=== PATIENT | female | born 1930 | race Caucasian/White ===

== ENCOUNTER 2020-06-26 14:44 | Inpatient (IN) | payer MEDICARE, OTHER ==
[~2020-06-26] VITALS: Ht 162.6 cm; Wt 64.2 kg
[2020-06-26 15:00] VITALS: BP 143/75
--- NOTE | 2020-06-26 15:43 | HP ---
ADMIT DATE: 06/26/2020 ATTENDING PHYSICIAN: Dr. Pickens. HISTORY OF PRESENT ILLNESS: The patient is doing well. This is a pleasant 89-year-old female, resident of [facility] in [place], [place]. She has underlying dementia and lately, she has been very anxious, depressed, poor appetite, hearing voices from outside saying that she sees people that are not there. She is having some visual hallucinations. She was sent here ___ adjustment on her medication. She had been on Paxil, discontinued, started on Cymbalta on 06/06. Hydrocodone has been discontinued. 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 ALLERGIES: She has allergies to anti-inflammatory drugs, exact reaction is unclear. She is a DNR per advanced directive. CURRENT MEDICATIONS: Her lists of medications include amlodipine 5 mg daily, Lipitor, Plavix 75 mg daily, furosemide 20 mg daily, hydrocodone p.r.n., melatonin, lisinopril 40 mg daily, metoprolol, Protonix, Paxil, potassium, Requip, therapeutic vitamin, estradiol, vitamin D, and ondansetron p.r.n. SOCIAL HISTORY: She is a nonsmoker, nondrinker. FAMILY HISTORY: Unobtainable due to the patient's condition. REVIEW OF SYSTEMS: Unobtainable due to the patient's confusion. PHYSICAL EXAMINATION: GENERAL: When I saw her, this is a very pleasant elderly female in no acute distress. She is afebrile. VITAL SIGNS: Initial vital signs on the database. HEENT: Head is without trauma. Pupils are reactive. Sclerae nonicteric. The oropharynx is clear. NECK: Supple, no bruits identified. LUNGS: Otherwise, clear to auscultation. CARDIOVASCULAR: Showed regular heart tones. No gallops. Peripheral pulses are palpable and full. ABDOMEN: Soft, scaphoid, nontender, no organomegaly. Bowel sounds are hypoactive. EXTREMITIES: Showed no cyanosis. Her extremities showed 2+ edema of the lower extremities. NEUROLOGIC: Focally intact. Speech is fluent. No deficit. She is not aware of time and place. SKIN: Otherwise, warm and dry. LABORATORY DATA: CBC, chemistry panel, coronavirus swab, serology have been ordered and pending at this time. ASSESSMENT: 1. An 89-year-old female, longterm resident with underlying dementia and visual hallucinations. She is medically stable. 2. Essential hypertension. 3. Chronic pedal edema. 4. Chronic back pain. 5. Restless leg syndrome. 6. Old stroke with residual deficits. 7. Gastroesophageal reflux disease. 8. Chronic urinary tract infections. PLAN: 1. I will review lab work when available. 2. Continue home meds. 3. Await results of coronavirus swabs. When bed is available, we will set her up to the [facility]. CHEL PICKENS MD DR: ALEXA/red JOB#: [id number] / [id number]
[2020-06-26 16:55] LABS: BASO # 0.1 x10^3/uL (0.0-0.2); BASO % 1 % (0-3); EOS # 0.2 x10^3/uL (0.0-0.7); EOS % 3 % (0-3); HEMATOCRIT 39.3 % (36.0-47.0); HEMOGLOBIN 12.9 g/dL (12.0-15.5); LYMPH # 1.8 x10^3/uL (1.0-4.8); LYMPH % 31 % (24-48); MEAN CORPUSCULAR HEMOGLOBIN 30 pg (25-35); MEAN CORPUSCULAR HGB CONC 33 g/dL (31-37); MEAN CORPUSCULAR VOLUME 91 fL (79-100); MONO # 0.8 x10^3/uL (0.0-1.1); MONO % 13 % (0-9); NEUT # 2.9 x10^3uL (1.8-7.7); NEUT % 52 % (31-73); PLATELET COUNT 194 x10^3/uL (140-400); RED CELL DISTRIBUTION WIDTH 14.4 % (11.5-14.5); WHITE BLOOD COUNT 5.7 x10^3/uL (4.0-11.0)
[2020-06-26 17:10] LABS: ALBUMIN 3.5 g/dL (3.4-5.0); ALBUMIN/GLOBULIN RATIO 1.1 (1.0-1.7); CALCIUM 8.8 mg/dL (8.5-10.1); CREATININE 0.7 mg/dL (0.6-1.0); POTASSIUM 3.2 mmol/L (3.5-5.1); TOTAL BILIRUBIN 0.4 mg/dL (0.2-1.0); TOTAL PROTEIN 6.8 g/dL (6.4-8.2)
[2020-06-26] MEDS ORDERED: PANT40TA6 PO (17:19)
[2020-06-26] MEDS ORDERED: CRAN1CAP12 PO (17:19)
[2020-06-26] MEDS ORDERED: METO50TA29 PO (17:19)
[2020-06-26] MEDS ORDERED: ACET325T21 PO (17:19)
[2020-06-26] MEDS ORDERED: CLOP75TA PO (17:19)
[2020-06-26] MEDS ORDERED: ONDA4TAB12 PO (17:19)
[2020-06-26] MEDS ORDERED: ATOR40TA59 PO (17:19)
[2020-06-26] MEDS ORDERED: ESTR30CR VG (17:19)
[2020-06-26] MEDS ORDERED: VITA400C37 PO (17:19)
[2020-06-26] MEDS ORDERED: POTA10TA5 PO (17:19)
[2020-06-26] MEDS ORDERED: CRAN200C3 PO (17:19)
[2020-06-26] MEDS ORDERED: AMLO-187 PO (17:19)
[2020-06-26] MEDS ORDERED: LISI40TA PO (17:19)
[2020-06-26] MEDS ORDERED: FURO20TA3 PO (17:19)
[2020-06-26] MEDS ORDERED: MULT-245 PO (17:19)
[2020-06-26] MEDS ORDERED: ROPI0.5T4 PO (17:19)
[2020-06-26] MEDS ORDERED: CALC200T96 PO (17:19)
[2020-06-26] MEDS ORDERED: MELA5TAB20 PO (17:19)
[2020-06-26] MEDS ORDERED: VIT1TABL34 PO (17:19)
[2020-06-26] MEDS ORDERED: DIPH25TA64 PO (17:19)
[2020-06-26] MEDS ORDERED: PARO40TA3 PO (17:19)
[2020-06-26] MEDS ORDERED: HYDR-2769 PO (17:19)
--- NOTE | 2020-06-26 18:18 | NUR ---
NURSING NOTE: ADMISSION PT ADMITTED TO UNIT ROOM 121 VIA AMBULATION W/WALKER. PT ORIENTED TO ROOM, VITALS TAKEN. PT MADE SEVERAL ATTEMPTS TO EXIT THE BED WITHOUT ASSISTANCE. PT WAS UP OUT OF BED WITHOUT ASSISTANCE THROUGHOUT THE REMAINDER OF THE SHIFT. PT WAS RELOCATED TO ROOM 125 FOR SAFETY TO BE WITHIN THE LINE OF SITE OF THE NURSING STATION. WILL CONTINUE TO MONITOR. JENA MELENDEZ
[2020-06-26 20:00] VITALS: BP 145/78
[2020-06-26] MEDS ORDERED: ONDANSETRON ODT 4 MG TAB.RAPDIS PO PRN (20:00)
[2020-06-26] MEDS ORDERED: ACETAMINOPHEN 325 MG TABLET PO PRN (20:00)
[2020-06-26] MEDS ORDERED: CALCIUM CARBONATE 500 MG TAB.CHEW PO PRN (20:00)
[2020-06-26] MEDS ORDERED: diphenhydrAMINE HCL 25 MG CAPSULE PO PRN (20:15)
[2020-06-26] MEDS ORDERED: MELATONIN 3 MG TABLET PO SCH (21:00)
[2020-06-26] MEDS ORDERED: ATORVASTATIN CALCIUM 20 MG TABLET PO SCH (21:00)
[2020-06-26] MEDS: rOPINIRole 0.5 MG TABLET. PO SCH (21:13)
[2020-06-26] MEDS: HYDROcodone/APAP 10/325 1 TAB TABLET PO PRN (23:41)
--- NOTE | 2020-06-27 05:24 | EKG ---
[address] [address] Test Date: 2020-06-26 Test Time: 19:39:59 Pat Name: JARAD WAHL Department: Room: 125 A Gender: F Department Head: : [id number] Requested By: CHEL PICKENS Order Number: [id number] Reading MD: Michele Gaspar Measurements Intervals [place] Rate: 73 P: 0 ME: 162 QRS: 44 QRSD: 132 T: -17 QT: 476 QTc: 529 Interpretive Statements SINUS RHYTHM RIGHT BUNDLE BRANCH BLOCK Electronically Signed On 06-27-2020 9:23:06 DRAW OFF WORKER by Michele Gaspar
[2020-06-27 06:24] VITALS: BP 160/79
[2020-06-27 07:09] LABS: HEMOGLOBIN A1C 5.5 % (4.8-5.6)
[2020-06-27] MEDS: rOPINIRole 0.5 MG TABLET. PO SCH ×2 (08:57→14:38)
[2020-06-27] MEDS ORDERED: amLODIPine BESYLATE 5 MG TABLET PO SCH (09:00)
[2020-06-27] MEDS ORDERED: CLOPIDOGREL BISULFATE 75 MG TABLET PO SCH (09:00)
[2020-06-27] MEDS ORDERED: METOPROLOL SUCC 24HR ER 50 MG TAB.ER.24H. PO SCH (09:00)
[2020-06-27] MEDS ORDERED: NON FORMULARY ITEM (Paroxetine Hcl 1 TAB) PO SCH (09:00)
[2020-06-27] MEDS ORDERED: MULTIVITAMIN with MINERAL TABLET. PO SCH (09:00)
[2020-06-27] MEDS ORDERED: VITAMIN E. 400 UNIT CAPSULE. PO SCH (09:00)
[2020-06-27] MEDS ORDERED: LISINOPRIL 20 MG TABLET PO SCH (09:00)
[2020-06-27] MEDS ORDERED: PANTOPRAZOLE 40 MG TABLET. PO SCH (09:00)
[2020-06-27 10:30] VITALS: BP 142/68
[2020-06-27] MEDS: HYDROcodone/APAP 10/325 1 TAB TABLET PO PRN (14:39)
[2020-06-27 14:49] VITALS: BP 127/74
--- NOTE | 2020-06-27 15:12 | NUR ---
NURSING NOTE: DISCHARGE PT DISCHARGED TO [facility] VIA AMBULATION. REPORT CALLED TO [facility]. PACKET SENT WITH PT. NO COMPLICATIONS. JENA MELENDEZ
--- NOTE | 2020-06-27 19:13 | DS ---
DATE OF DISCHARGE: 06/27/2020 HOSPITAL COURSE: The patient is an 89-year-old female patient, a resident at [facility] in [facility], who was basically admitted to [address] [place] [address] for COVID-19 screening prior to admission to [facility] on account of being very anxious, depressed. She has poor appetite, hearing voices from outside saying that she sees people that are not there. She is having some visual hallucinations. She was seen here for inpatient psychiatric stabilization. When I saw her this afternoon, she was sitting at the edge of the bed comfortably, in no apparent distress. She continued to have some visual hallucinations stating that there are dogs in the cars outside, but she herself seemed to be doing well and was clearly in no apparent respiratory distress. She was pale, somewhat cachectic, but no jaundice, cyanosis or thyromegaly. No jugular venous distention. No limb edema. PHYSICAL EXAMINATION: VITAL SIGNS: Her heart rate was 79, blood pressure was 127/74, her temperature was 98, respiratory rate 20, and oxygen saturation was 98%. HEAD, EYES, EARS, NOSE AND THROAT: Showed normocephalic, atraumatic. NECK: Supple. HEART: Showed normal first and second heart sounds. No gallop, rub or murmur. CHEST: Clear to auscultation. No crepitation or rhonchi. ABDOMEN: Distended, soft, nontender. NEUROLOGIC: She was grossly intact. LABORATORY DATA: Showed that her white cell count was 5700, hemoglobin 13, hematocrit 39, MCV 91, and platelet count of 194,000. Her chemistry showed a serum sodium 143, potassium 3.2, chloride 103, bicarbonate 32, anion gap of 8, BUN 9, creatinine 0.7, estimated GFR was 79 mL per minute. Her glucose was 79. Hemoglobin A1c was 5.5. Calcium was 8.8, magnesium 2. Total bilirubin, AST, ALT, alkaline phosphatase were normal. Total protein 6.8, albumin 3.5. Her D-dimer was 1.43 and COVID-19 by PCR was negative. DISCHARGE MEDICATIONS: The patient was discharged to [facility] to continue on Tylenol 650 mg every 4 hours as needed, amlodipine 5 mg once a day, atorvastatin 40 mg at bedtime, calcium carbonate 500 mg 3 times a day, Plavix 75 mg daily, cranberry extract 200 mg daily, cranberry extract soft gel one capsule daily, diphenhydramine 25 mg 3 times a day, Premarin 0.5 grams vaginally 3 times weekly for hormone replacement, furosemide 20 mg once a day, hydrocodone/APAP 10/325 one to two tablets 3 times a day, lisinopril 40 mg once a day, melatonin 5 mg once a day, metoprolol succinate 50 mg once a day, multivitamin 1 tablet once a day, ondansetron 4 mg 3 times a day, Protonix 40 mg once a day, paroxetine 40 mg once a day, potassium chloride 20 mEq once a day, Requip 0.5 mg 3 times a day, PreserVision AREDS 1 tablet daily, vitamin E acetate 400 units once a day. FINAL DISCHARGE DIAGNOSES: 1. Dementia with visual and auditory hallucination. 2. Essential hypertension. 3. Gastroesophageal reflux disease. 4. Chronic pain syndrome. 5. Restless legs syndrome. 6. Old stroke with residual deficit. 7. Hyperlipidemia. VALERY NEW MD DR: MILAGRO/red JOB#: [id number] / [id number]
[2020-06-27 19:41] LABS: THYROID STIM HORMONE (TSH) 1.96 uIU/mL (0.358-3.740)
--- NOTE | 2020-06-27 20:29 | PDOC ---
Exam Note: Eriberto Note: This is a late entry for DOS 06/26/2020. Please also refer to the separate dictated note~for this date of service dictated separately.~Patient seen individually. Discussed the patient with Nursing staff reviewed the chart.~Reviewed interim history and current functioning. Reviewed vital signs,~Labs/ Radiology~and current medications noted below. Continue current treatment with the changes noted in the dictated addendum note Assessment: Vital Signs/I&O: Vital Signs Date Time Temp Pulse Resp B/P (MAP) Pulse Ox O2 Delivery O2 Flow Rate FiO2 06/27/20 14:49 98.0 79 20 127/74 (91) 98 Room Air I & O 06/26/20 06/26/20 06/27/20 15:00 23:00 07:00 Intake Total 180 ml Balance 180 ml Current Medications: Meds: Current Medications Medications (Trade) Dose Ordered Sig/Tamanna Route PRN Reason Start Time Stop Time Status Last Admin Dose Admin Amlodipine Besylate (Norvasc) 5 mg DAILY PO 06/27/20 09:00 06/27/20 15:24 DC 06/27/20 08:57 Clopidogrel Bisulfate (Plavix) 75 mg DAILY PO 06/27/20 09:00 06/27/20 15:24 DC 06/27/20 08:58 Metoprolol Succinate (Toprol Xl) 50 mg DAILY PO 06/27/20 09:00 06/27/20 15:24 DC 06/27/20 08:57 Pantoprazole Sodium (Protonix) 40 mg DAILY PO 06/27/20 09:00 06/27/20 15:24 DC 06/27/20 08:58 Ropinirole HCl (Requip) 0.5 mg TID PO 06/26/20 21:00 06/27/20 15:24 DC 06/27/20 14:38 Atorvastatin Calcium (Lipitor) 40 mg QHS PO 06/26/20 21:00 06/27/20 15:24 DC 06/26/20 21:13 Lisinopril (Prinivil) 40 mg DAILY PO 06/27/20 09:00 06/27/20 15:24 DC 06/27/20 08:58 Melatonin (Melatonin) 4.5 mg HS PO 06/26/20 21:00 06/27/20 15:24 DC 11/3/20 21:13 Multivitamins/ Calcium (Thera-M Plus) 1 tab DAILY PO 06/27/20 09:00 06/27/20 15:24 DC 06/27/20 08:58 Vitamin E (Vitamin E.) 400 unit DAILY PO 06/27/20 09:00 06/27/20 15:24 DC 06/27/20 08:58 I have reviewed the current psychotropics carefully including drug interactions. Risk benefit ratio favors no change other than as noted in my dictated progress note. Diagnosis: Problems: (1) Visual hallucination (2) Paranoid delusion LAURA PEREZ MD Jun 27, 2020 20:29
[2020-06-27] MEDS ORDERED: ESTRADIOL 0.01% VAGINAL CREAM 42.5GM TUBE. VG SCH (21:00)
--- NOTE | 2020-06-28 08:05 | CONS ---
DATE OF CONSULTATION: 06/26/2020 PSYCHIATRIC CONSULTATION NOTE This late entry 06/26/2020 covers elements not covered in my initial note. IDENTIFYING DATA: The patient is an 89-year-old female referred to [facility] from [facility] [address] [address] on account of worsening symptoms of depression, psychosis, having active auditory hallucinations, seeing a woman outside the window with chainsaws. She was unmanageable at the facility, had failed outpatient psychiatric interventions, referred for inpatient psychiatric stabilization. She is on the medical/surgical floor to screen for COVID before she transitions to [facility]. I have been asked to consult on her. REVIEW OF SYSTEMS: Positive for restless legs, impaired ambulation. No CV, , pulmonary, eye system symptoms on review. Discussed with nursing staff, reviewed the chart and discussed with Meghan Cordero, food and beverage coordinator. MENTAL STATUS EXAMINATION: The patient is awake, alert, oriented to herself and situation. Speech has some latency. Abstraction fair, computation impaired, language function intact. Mood is depressed, paranoid. No active suicidal ideation. LABORATORY DATA: Reviewed. IMPRESSION: Major depressive disorder, recurrent with psychotic features, mild cognitive impairment; anxiety disorder, unspecified; psychotic disorder, unspecified. PLAN: Continue current psychotropics. Once her COVID screen is negative, she will transition to [facility]. We will make further adjustments in psychotropics post baseline assessment. LAURA PEREZ MD DR: RIK/red JOB#: [id number] / [id number]
== END 2020-06-27 15:23 | DRG 641 ==
LOC: 1 SOUTH 15:02
PROVIDERS: ADMIT Hospitalist; ATTEND Hospitalist
DX: E87.6 Hypokalemia (principal); F33.3 Major depressive disorder, recurrent, severe with psychotic symptoms; N39.0 Urinary tract infection, site not specified; R64 Cachexia; F03.90 Unspecified dementia, unspecified severity, without behavioral disturbance, psychotic disturbance, mood disturbance, and anxiety; I10 Essential (primary) hypertension; K21.9 Gastro-esophageal reflux disease without esophagitis; G89.4 Chronic pain syndrome; G25.81 Restless legs syndrome; E78.5 Hyperlipidemia, unspecified; F41.9 Anxiety disorder, unspecified; Z66 Do not resuscitate; Z20.828 Contact with and (suspected) exposure to other viral communicable diseases; I69.30 Unspecified sequelae of cerebral infarction; Z88.2 Allergy status to sulfonamides; Z88.8 Allergy status to other drugs, medicaments and biological substances; Z68.24 Body mass index [BMI] 24.0-24.9, adult
CPT/HCPCS: 36415; 80053; 80061; 82306; 82607; 83036; 83735; 84443; 85025; 85379; 86592; 93005; U0003

== ENCOUNTER 2020-06-27 10:48 | Inpatient (IN) | payer MEDICARE, OTHER ==
[~2020-06-27] VITALS: Ht 162.6 cm; Wt 62.6 kg
[~2020-06-27 10:48] MED LIST: ACET325T21 PO; AMLO-187 PO; ATOR40TA59 PO; CALC200T96 PO; CLOP75TA PO; CRAN1CAP12 PO; CRAN200C3 PO; DIPH25TA64 PO; ESTR30CR VG; FURO20TA3 PO; HYDR-2769 PO; LISI40TA PO; MELA5TAB20 PO; METO50TA29 PO; MULT-245 PO; ONDA4TAB12 PO; PANT40TA6 PO; PARO40TA3 PO; POTA10TA5 PO; ROPI0.5T4 PO; VIT1TABL34 PO; VITA400C37 PO
[2020-06-27 16:14] VITALS: BP 134/83
[2020-06-27] MEDS ORDERED: MAGNESIUM HYDROXIDE 2,400 MG/30 ML ORAL.SUSP. PO PRN (16:15)
[2020-06-27] MEDS ORDERED: MAG HYDROX/AL HYDROX/SIMETH 30 ML ORAL.SUSP PO PRN (16:15)
[2020-06-27] MEDS ORDERED: ACETAMINOPHEN 325 MG TABLET PO PRN (16:15)
[2020-06-27] MEDS ORDERED: CALCIUM CARBONATE 500 MG TAB.CHEW PO PRN (16:45)
[2020-06-27] MEDS ORDERED: ONDANSETRON ODT 4 MG TAB.RAPDIS PO PRN (16:45)
[2020-06-27] MEDS ORDERED: diphenhydrAMINE HCL 25 MG CAPSULE PO PRN (17:00)
--- NOTE | 2020-06-27 20:31 | PDOC ---
Exam Note: Eriberto Note: Please also refer to the separate dictated note~for this date of service dictated separately.~Patient seen individually. Discussed the patient with Nursing staff reviewed the chart.~Reviewed interim history and current functioning. Reviewed vital signs,~Labs/ Radiology~and current medications noted below. Continue current treatment with the changes noted in the dictated addendum note Assessment: Vital Signs/I&O: Vital Signs Date Time Temp Pulse Resp B/P (MAP) Pulse Ox O2 Delivery O2 Flow Rate FiO2 06/27/20 16:14 97.8 76 18 134/83 (100) 97 Venturi Mask Current Medications: I have reviewed the current psychotropics carefully including drug interactions. Risk benefit ratio favors no change other than as noted in my dictated progress note. Diagnosis: Problems: (1) Visual hallucination (2) Paranoid delusion LAURA PEREZ MD Jun 27, 2020 20:31
[2020-06-27] MEDS: rOPINIRole 0.5 MG TABLET. PO SCH (20:53)
[2020-06-27] MEDS: ATORVASTATIN CALCIUM 20 MG TABLET PO SCH (20:53)
[2020-06-27] MEDS: MELATONIN 3 MG TABLET PO SCH (20:53)
[2020-06-27] MEDS: ESTRADIOL 0.01% VAGINAL CREAM 42.5GM TUBE. VG SCH (21:00)
--- NOTE | 2020-06-27 21:58 | HP ---
ADMIT DATE: 06/27/2020 PSYCHIATRIC ADMISSION HISTORY/EVALUATION IDENTIFYING DATA: The patient is an 89-year-old female referred to us from [facility] on account of worsening anxiety, depression, being agitated, having poor appetite. She was having marked insomnia thinking others were talking about her. She felt the voices from the TV telling her to do things. She would see women outside her window with chainsaws. She felt no one would care for her and wants to kick her out. She had failed outpatient psychiatric interventions, referred for inpatient psychiatric stabilization. CHIEF COMPLAINT: "Yes, I get upset. I am depressed." HISTORY OF PRESENT ILLNESS: The patient has a history of marked worsening symptoms of mood, depression, sleep and appetite changes, paranoia, agitation. No clear symptoms of bipolar disorder. No active suicidal or homicidal ideation. She has been quite paranoid, delusional. PAST PSYCHIATRIC HISTORY: As above. MEDICAL HISTORY: Positive for chronic UTIs, hypertension, edema, GERD, chronic pain, restless leg syndrome, status post CVA, and hyperlipidemia. ACCU-CHEKS: None. DIET: No added salt. ALLERGIES: ANTI-INFLAMMATORY MEDICATIONS. CODE STATUS: DNR. Ambulates independently with walker. CURRENT PSYCHOTROPICS: Melatonin 4.5 mg at bedtime, Requip 0.5 mg t.i.d. for restless leg syndrome. FAMILY HISTORY: Noncontributory. SOCIAL HISTORY: No history of alcohol, drug abuse, physical, sexual or elder abuse. She is not known to be a perpetrator. REVIEW OF SYSTEMS: Ambulation impaired. No CV, , pulmonary, eye system symptoms on review, somewhat hard of hearing. MENTAL STATUS EXAMINATION: The patient was seen individually evening of 06/27/2020. She is oriented to herself and situation. Speech has some latency, coherent. Abstraction fair, computation impaired, language function intact, attention span short. Mood is depressed, anxious, paranoid. Affect is mood congruent. LABORATORY DATA: Reviewed. IMPRESSION: Major depressive disorder, recurrent with psychotic features, mild cognitive impairment; anxiety disorder, unspecified. Rest as above. PLAN: Admit to Geropsychiatry Unit at [facility]. I will see the patient daily individually from a psychiatric standpoint. Medical followup with Dr. Hobson/Dr. Vicente. Continue the patient on her current psychotropics. Observe baseline, adjust further as clinically indicated. ESTIMATED LENGTH OF STAY: 10-12 days. DISPOSITION: Plans back to long-term when stable. LAURA PEREZ MD DR: RIK/red JOB#: [id number] / [id number]
[2020-06-27] MEDS: traZODone 50 MG TABLET. PO PRN (23:08)
[2020-06-28] MEDS: HYDROcodone/APAP 10/325 1 TAB TABLET PO PRN ×2 (00:02→21:27)
[2020-06-28 01:07] LABS: BACTERIA,URINE 0 /HPF (0-FEW); BILIRUBIN,URINE NEG (NEG); CLARITY,URINE CLEAR; COLOR,URINE YELLOW; GLUCOSE,URINE NEG (NEG); NITRITE,URINE NEG (NEG); RBC,URINE OCC /HPF (0-2); SQUAMOUS EPITHELIAL CELL,UR MOD /LPF; WBC,URINE 0 /HPF (0-4)
[2020-06-28 05:53] VITALS: BP 122/70
[2020-06-28] MEDS: LISINOPRIL 20 MG TABLET PO SCH (08:02)
[2020-06-28] MEDS: POTASSIUM CHLORIDE 20 MEQ TABLET.ER. PO SCH ×2 (08:03→20:24)
[2020-06-28] MEDS: METOPROLOL SUCC 24HR ER 50 MG TAB.ER.24H. PO SCH (08:03)
[2020-06-28] MEDS: VITAMIN E. 400 UNIT CAPSULE. PO SCH (08:03)
[2020-06-28] MEDS: PANTOPRAZOLE 40 MG TABLET. PO SCH (08:03)
[2020-06-28] MEDS: rOPINIRole 0.5 MG TABLET. PO SCH ×2 (08:04→14:05)
[2020-06-28] MEDS: amLODIPine BESYLATE 5 MG TABLET PO SCH (08:04)
[2020-06-28] MEDS: CLOPIDOGREL BISULFATE 75 MG TABLET PO SCH (08:04)
[2020-06-28] MEDS: MULTIVITAMIN with MINERAL TABLET. PO SCH (08:04)
[2020-06-28 08:19] VITALS: BP 131/80
[2020-06-28] MEDS: METHYL SALICYLATE/MENTHOL TOPICAL OINTMENT 57GM TUBE. TP PRN (11:08)
[2020-06-28] MEDS: ACETAMINOPHEN 325 MG TABLET PO PRN (12:06)
--- NOTE | 2020-06-28 12:53 | TX PLAN ---
Interdisciplinary Tx Plan Admission Information Jun 27, 2020 at 15:25 Legal Status (on Admission): Voluntary DPOA/Guardian Name: Félix Cheema Contact Other Contact Name: Gemma Arroyo Amy Other Contact Verified Code Status: DNR Allergies: Coded Allergies: NSAIDS (Non-Steroidal Anti-Inflamma (Verified Allergy, Severe, anaphylaxis, 06/28/20) Sulfa (Sulfonamide Antibiotics) (Verified Allergy, Unknown, 06/26/20) doxycycline (Verified Allergy, Unknown, 06/26/20) lansoprazole (Verified Allergy, Unknown, 06/26/20) oseltamivir (Verified Allergy, Unknown, 06/26/20) paroxetine (Verified Allergy, Unknown, 06/26/20) ranitidine (Verified Allergy, Unknown, 06/26/20) Diagnoses Primary Diagnosis: Major depressive disorder, recurrent with psychotic features, mild cognitive impairment; anxiety disorder, unspecified. Reasons for Admission: Delusions, Agitated, Depressed, Sig. Change Appetite, Sig. Change Sleep, Anxiety/Panic, Hallucinations Problem in Patient's Words: Per pt, "I've been having lots of trouble with temper, which is unusual for me. It is not my personality. I've made people mad. I have restless legs and that is terrible. 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 You can look at me wrong and I'll start crying. I've taken hydrocodone for years and would like to get off of it. A doctor put me on it a long time ago and my current doctor said that he would agree to take one pill away a month from me." Additional Admission Comments: Per intake record, agitated, anxious, depressed, poor appetite, insominia,thinks others are talking about her, voices from TV are telling her what to do, sees women outside her window with chainsaws, feels like no one cares for her and wants to kick her out. Problems Active Problems: A/V Hallucinations of seeing dogs and hearing music. Delusions of thinking that others talk about her. Inactive Problems: None Pt Strengths/Limitations Ability for Fence: Fair Cognitive Functioning/Ability: Fair Communication Skills/Ability: Good Financial Resources: Good Insight/Judgement: Fair Intellectual Ability: Fair Physical Health: Poor Social Skills: Poor Stability in Family: Good Stability in School/Work: Good Verbal Skills: Good Discharge Criteria Discharge Criteria: OP monitor medical prob, Adequate arrangements @DC, Adequate self-care, Verbal commit med comply, Improved behavior, Improved mood/thought Preliminary Discharge Plan Preliminary DC Plan: Assisted Living Special Precautions Special Precautions: Agitation/Assault Fall Risk: Moderate Other Precautions (specify): Pt uses a walker Initial D/C Plan Pt plan is to return to [facility]. Follow up with PCP. Psychiatrist to follow if available through facility. Currently Utilized Resources Currently Utilized Resources/P: PCP is Dr. Herb Guerra [phone] DPOA is son Félix Cheema [phone] [address] facility is [facility]- contact is Gemma Arroyo or Amy (P) [phone] (F)[phone] Referrals Community Resources: None noted at this time. Identified Problems/Hx/Goals Objectives/Short-Term Goals Short Term Goals: Dec. Anxiety/Panic, Dec. Hallucination/Delus, Dec. Symp. 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 Education: Pt reports that she attended high school through her paola year; not completing high school so that she could get and start a family. 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
[2020-06-28 16:11] VITALS: BP 133/63
[2020-06-28] MEDS: traZODone 50 MG TABLET. PO PRN (20:22)
[2020-06-28] MEDS: MELATONIN 3 MG TABLET PO SCH (20:22)
[2020-06-28] MEDS: ATORVASTATIN CALCIUM 20 MG TABLET PO SCH (20:22)
[2020-06-28] MEDS: QUEtiapine 25 MG TABLET. PO SCH (20:27)
[2020-06-28] MEDS: rOPINIRole 1 MG TABLET. PO SCH (20:27)
--- NOTE | 2020-06-28 20:47 | PDOC ---
Exam Note: Eriberto Note: Please also refer to the separate dictated note~for this date of service dictated separately.~Patient seen individually. Discussed the patient with Nursing staff reviewed the chart.~Reviewed interim history and current functioning. Reviewed vital signs,~Labs/ Radiology~and current medications noted below. Continue current treatment with the changes noted in the dictated addendum note Assessment: Vital Signs/I&O: Vital Signs Date Time Temp Pulse Resp B/P (MAP) Pulse Ox O2 Delivery O2 Flow Rate FiO2 06/28/20 16:11 98.0 87 18 133/63 (86) 98 06/27/20 16:14 Venturi Mask I & O 06/27/20 06/27/20 06/28/20 15:00 23:00 07:00 Intake Total 480 ml Output Total 400 ml Balance 480 ml -400 ml Labs: Laboratory Tests Test 06/28/20 00:35 Urine Collection Type Unknown Urine Color Yellow Urine Clarity Clear Urine pH 6.5 Urine Specific [place] 1.010 Urine Protein Neg (NEG-TRACE) Urine Glucose (UA) Neg mg/dL (NEG) Urine Ketones (Stick) Neg mg/dL (NEG) Urine Blood Trace (NEG) Urine Nitrite Neg (NEG) Urine Bilirubin Neg (NEG) Urine Urobilinogen Dipstick 2.0 mg/dL (0.2 mg/dL) Urine Leukocyte Esterase Neg (NEG) Urine RBC Occ /HPF (0-2) Urine WBC 0 /HPF (0-4) Urine Squamous Epithelial Cells Mod /LPF Urine Bacteria 0 /HPF (0-FEW) Current Medications: Meds: Current Medications Medications (Trade) Dose Ordered Sig/Tamanna Route PRN Reason Start Time Stop Time Status Last Admin Dose Admin Amlodipine Besylate (Norvasc) 5 mg DAILY PO 06/28/20 09:00 06/28/20 08:04 Clopidogrel Bisulfate (Plavix) 75 mg DAILY PO 06/28/20 09:00 06/28/20 08:04 Metoprolol Succinate (Toprol Xl) 50 mg DAILY PO 06/28/20 09:00 06/28/20 08:03 Pantoprazole Sodium (Protonix) 40 mg DAILY PO 06/28/20 09:00 06/28/20 08:03 Ropinirole HCl (Requip) 0.5 mg TID PO 06/27/20 21:00 06/28/20 16:54 DC 06/28/20 14:05 Atorvastatin Calcium (Lipitor) 40 mg QHS PO 06/27/20 21:00 06/28/20 20:22 Lisinopril (Prinivil) 40 mg DAILY PO 06/28/20 09:00 06/28/20 08:02 Melatonin (Melatonin) 4.5 mg HS PO 06/27/20 21:00 06/28/20 20:22 Multivitamins/ Calcium (Thera-M Plus) 1 tab DAILY PO 06/28/20 09:00 06/28/20 08:04 Vitamin E (Vitamin E.) 400 unit DAILY PO 06/28/20 09:00 06/28/20 08:03 Potassium Chloride (Klor-Con) 20 meq BID PO 06/28/20 09:00 06/28/20 20:24 Trazodone HCl (Desyrel) 25 mg PRN QHS PRN PO INSOMNIA, MAY REPEAT X1 06/27/20 23:15 06/28/20 20:22 Olanzapine (ZyPREXA ZYDIS) 1.25 mg PRN Q2HRS PRN PO PSYCHOSIS 06/27/20 23:15 06/28/20 20:24 Quetiapine Fumarate (SEROquel) 12.5 mg QHS PO 06/28/20 21:00 06/28/20 20:27 Ropinirole HCl (Requip) 1 mg TID PO 06/28/20 21:00 06/28/20 20:27 I have reviewed the current psychotropics carefully including drug interactions. Risk benefit ratio favors no change other than as noted in my dictated progress note. Diagnosis: Problems: (1) Major depressive disorder, recurrent, severe with psychotic symptoms (2) Mild cognitive impairment (3) Anxiety disorder, unspecified LAURA PEREZ MD Jun 28, 2020 20:47
[2020-06-29 06:35] VITALS: BP 143/56
[2020-06-29] MEDS: rOPINIRole 1 MG TABLET. PO SCH ×3 (08:00→19:40)
[2020-06-29] MEDS: METOPROLOL SUCC 24HR ER 50 MG TAB.ER.24H. PO SCH (08:00)
[2020-06-29] MEDS: MULTIVITAMIN with MINERAL TABLET. PO SCH (08:00)
[2020-06-29] MEDS: CLOPIDOGREL BISULFATE 75 MG TABLET PO SCH (08:01)
[2020-06-29] MEDS: VITAMIN E. 400 UNIT CAPSULE. PO SCH (08:01)
[2020-06-29] MEDS: SERTRALINE 25 MG TABLET. PO SCH (08:01)
[2020-06-29] MEDS: POTASSIUM CHLORIDE 20 MEQ TABLET.ER. PO SCH ×2 (08:01→19:41)
[2020-06-29] MEDS: PANTOPRAZOLE 40 MG TABLET. PO SCH (08:01)
[2020-06-29] MEDS: LISINOPRIL 20 MG TABLET PO SCH (08:02)
[2020-06-29] MEDS: amLODIPine BESYLATE 5 MG TABLET PO SCH (08:03)
[2020-06-29] MEDS: METHYL SALICYLATE/MENTHOL TOPICAL OINTMENT 57GM TUBE. TP PRN (09:47)
[2020-06-29] MEDS: HYDROcodone/APAP 10/325 1 TAB TABLET PO PRN ×2 (09:47→21:05)
[2020-06-29 15:53] VITALS: BP 152/80
--- NOTE | 2020-06-29 16:12 | CONS ---
DATE OF CONSULTATION: 06/28/2020 This is an addendum for the consult for medical management. HISTORY OF PRESENT ILLNESS: The patient was admitted originally to [address] [place] [address] where she was tested for coronavirus and was undetectable and therefore, she was admitted to [facility] on account of being very anxious, depressed, has poor appetite, hearing voices from outside, stating that she is seeing people that are not there. She does have visual hallucination and was admitted to [facility] for inpatient psychiatric stabilization. When I saw her today, she told me that she continued to have this visual hallucination, but her biggest problem is her restless legs syndrome at nighttime, but denied any other complaint. PAST MEDICAL HISTORY: Significant for hypertension, gastroesophageal reflux disease, chronic pain syndrome, restless legs syndrome, old stroke and residual deficits and hyperlipidemia. ALLERGIES: She is allergic to all anti-inflammatory medication; however, the exact reaction is unclear. She is a DNR with advanced directives. MEDICATIONS: She is currently on following medications: She is on sertraline 25 mg once a day, quetiapine fumarate 12.5 mg at bedtime, potassium chloride 20 mEq twice a day, vitamin E 400 International Unit once a day, multivitamin with calcium once a day, lisinopril 40 mg once a day, Protonix 40 mg once a day, metoprolol succinate 50 mg once a day, Plavix 75 mg once a day, amlodipine 5 mg once a day, olanzapine 1.25 mg every 2 hours, trazodone 25 mg at bedtime, melatonin 4.5 mg at bedtime, estradiol 1 application 3 times a week, atorvastatin 40 mg at bedtime, Requip 0.5 mg 3 times a day, diphenhydramine 25 mg 3 times a day, and ondansetron 4 mg every 6 hours as needed, hydrocodone/APAP 10/325 two tablets 3 times a day, calcium carbonate 500 mg 3 times a day, acetaminophen 650 mg every 6 hours, milk of magnesia 30 mL p.o. daily p.r.n. for constipation. FAMILY HISTORY: Noncontributory. SOCIAL HISTORY: She is a nonsmoker, nondrinker. PHYSICAL EXAMINATION: GENERAL: When I examined her this afternoon, she was resting flat in bed, in no apparent respiratory distress. No pallor, jaundice, cyanosis or thyromegaly. No jugular venous distention. No lower limb edema. VITAL SIGNS: Her heart rate was 87, blood pressure was 133/63, temperature was 98, respiratory rate was 18 and oxygen saturation was 98%. The rest of the exam is stable. LABORATORY DATA: Her lab works were reviewed and are unremarkable except that her 25-hydroxyvitamin D was low at 27.6. PLAN: My plan is to increase her Requip to 1 mg 3 times a day and to observe her response to this adjustment. Thank you, Dr. Love, for allowing me to participate in the care of this patient. VALERY NEW MD DR: MILAGRO/red JOB#: [id number] / [id number]
[2020-06-29] MEDS: QUEtiapine 25 MG TABLET. PO SCH (19:40)
[2020-06-29] MEDS: MELATONIN 3 MG TABLET PO SCH (19:42)
[2020-06-29] MEDS: ATORVASTATIN CALCIUM 20 MG TABLET PO SCH (19:42)
[2020-06-29] MEDS: ESTRADIOL 0.01% VAGINAL CREAM 42.5GM TUBE. VG SCH (19:43)
--- NOTE | 2020-06-29 20:55 | PDOC ---
Exam Note: Eriberto Note: Please also refer to the separate dictated note~for this date of service dictated separately.~Patient seen individually. Discussed the patient with Nursing staff reviewed the chart.~Reviewed interim history and current functioning. Reviewed vital signs,~Labs/ Radiology~and current medications noted below. Continue current treatment with the changes noted in the dictated addendum note Assessment: Vital Signs/I&O: Vital Signs Date Time Temp Pulse Resp B/P (MAP) Pulse Ox O2 Delivery O2 Flow Rate FiO2 06/29/20 15:53 97.5 80 16 152/80 (104) 98 06/29/20 09:47 Room Air I & O 06/28/20 06/28/20 06/29/20 14:59 22:59 06:59 Intake Total 560 ml 120 ml Balance 560 ml 120 ml Current Medications: Meds: Current Medications Medications (Trade) Dose Ordered Sig/Tamanna Route PRN Reason Start Time Stop Time Status Last Admin Dose Admin Quetiapine Fumarate (SEROquel) 12.5 mg QHS PO 06/28/20 21:00 06/29/20 19:40 Sertraline HCl (Zoloft) 25 mg DAILY PO 06/29/20 09:00 06/29/20 08:01 Ropinirole HCl (Requip) 1 mg TID PO 06/28/20 21:00 06/29/20 19:40 I have reviewed the current psychotropics carefully including drug interactions. Risk benefit ratio favors no change other than as noted in my dictated progress note. Diagnosis: Problems: (1) Major depressive disorder, recurrent, severe with psychotic symptoms (2) Anxiety disorder, unspecified (3) Mild cognitive impairment LAURA PEREZ MD Jun 29, 2020 20:55
[2020-06-29] MEDS: traZODone 50 MG TABLET. PO PRN (22:05)
[2020-06-30 06:00] VITALS: BP 121/73
[2020-06-30] MEDS: SERTRALINE 25 MG TABLET. PO SCH (07:56)
[2020-06-30] MEDS: rOPINIRole 1 MG TABLET. PO SCH ×3 (07:56→19:52)
[2020-06-30] MEDS: VITAMIN E. 400 UNIT CAPSULE. PO SCH (07:56)
[2020-06-30] MEDS: PANTOPRAZOLE 40 MG TABLET. PO SCH (07:57)
[2020-06-30] MEDS: MULTIVITAMIN with MINERAL TABLET. PO SCH (07:57)
[2020-06-30] MEDS: LISINOPRIL 20 MG TABLET PO SCH (07:57)
[2020-06-30] MEDS: POTASSIUM CHLORIDE 20 MEQ TABLET.ER. PO SCH ×2 (07:58→19:54)
[2020-06-30] MEDS: CLOPIDOGREL BISULFATE 75 MG TABLET PO SCH (07:58)
[2020-06-30] MEDS: METOPROLOL SUCC 24HR ER 50 MG TAB.ER.24H. PO SCH (07:58)
[2020-06-30] MEDS: amLODIPine BESYLATE 5 MG TABLET PO SCH (07:59)
[2020-06-30] MEDS: METHYL SALICYLATE/MENTHOL TOPICAL OINTMENT 57GM TUBE. TP PRN (11:46)
[2020-06-30] MEDS: HYDROcodone/APAP 10/325 1 TAB TABLET PO PRN ×2 (11:47→19:54)
[2020-06-30 14:30] VITALS: BP 84/50
[2020-06-30] MEDS: ATORVASTATIN CALCIUM 20 MG TABLET PO SCH (19:51)
[2020-06-30] MEDS: MELATONIN 3 MG TABLET PO SCH (19:51)
[2020-06-30] MEDS: QUEtiapine 25 MG TABLET. PO SCH (19:53)
[2020-06-30] MEDS: traZODone 50 MG TABLET. PO PRN ×2 (19:53→23:21)
--- NOTE | 2020-06-30 20:49 | PDOC ---
Exam Note: Eriberto Note: Please also refer to the separate dictated note~for this date of service dictated separately.~Patient seen individually. Discussed the patient with Nursing staff reviewed the chart.~Reviewed interim history and current functioning. Reviewed vital signs,~Labs/ Radiology~and current medications noted below. Continue current treatment with the changes noted in the dictated addendum note Assessment: Vital Signs/I&O: Vital Signs Date Time Temp Pulse Resp B/P (MAP) Pulse Ox O2 Delivery O2 Flow Rate FiO2 06/30/20 14:30 98.5 89 18 84/50 (61) 95 06/30/20 12:36 Room Air 06/30/20 06:00 2.0 I & O 06/29/20 06/29/20 06/30/20 15:00 23:00 07:00 Intake Total 450 ml 300 ml Balance 450 ml 300 ml Current Medications: I have reviewed the current psychotropics carefully including drug interactions. Risk benefit ratio favors no change other than as noted in my dictated progress note. Diagnosis: Problems: (1) Mild cognitive impairment (2) Anxiety disorder, unspecified (3) Major depressive disorder, recurrent, severe with psychotic symptoms LAURA PEREZ MD Jun 30, 2020 20:49
[2020-07-01] MEDS: ACETAMINOPHEN 325 MG TABLET PO PRN (00:46)
[2020-07-01] MEDS: METHYL SALICYLATE/MENTHOL TOPICAL OINTMENT 57GM TUBE. TP PRN (02:50)
[2020-07-01] MEDS: HYDROcodone/APAP 10/325 1 TAB TABLET PO PRN ×2 (05:16→20:35)
[2020-07-01 06:00] VITALS: BP 136/83
--- NOTE | 2020-07-01 07:07 | PDOC ---
Exam Note: Eriberto Note: This note is a late entry for 06/28/2020 covers elements not covered in my initial note. Subjective: The patient was seen face to face in the morning of 06/28/2020 for treatment team meeting with Meghan Watkins Nikki (social media marketing manager), Guillermina, activity therapy staff, and Anna BELLA. Discussed with nursing staff, reviewed the chart. The patient slept 1-1/4 hours previous night. Reviewed at length at treatment team meeting. She was having active hallucinations previous evening, thought there was a dog and a pig in her blanket. She told the shift production associate about it was irritable, gets quite distressed with her restless legs. Review of Systems: She is hard of hearing. No CV, , pulmonary, eye system symptoms on review. Mental Status Exam: Oriented to herself and situation. Speech is coherent, rapid at times. Abstraction is fair. Computation is impaired. Language function is intact. Attention span is short. Mood and affect remains somewhat anxious, labile. Laboratory Data: Reviewed. 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 Anxiety disorder unspecified. Mild cognitive impairment. Plan: Start Zoloft 25 mg a day for her mood and anxiety symptoms, Seroquel 12.5 mg h.s. for psychotic symptoms. We may need to increase ReQuip for her restless legs. We will defer her to Dr. Hobson. Assessment: Vital Signs/I&O: Vital Signs Date Time Temp Pulse Resp B/P (MAP) Pulse Ox O2 Delivery O2 Flow Rate FiO2 07/01/20 07:05 Room Air 07/01/20 06:00 98.3 85 16 136/83 (100) 95 06/30/20 06:00 2.0 I & O 06/30/20 06/30/20 07/01/20 15:00 23:00 07:00 Intake Total 120 ml 480 ml Balance 120 ml 480 ml Current Medications: I have reviewed the current psychotropics carefully including drug interactions. Risk benefit ratio favors no change other than as noted in my dictated progress note. Diagnosis: Problems: (1) Mild cognitive impairment (2) Anxiety disorder, unspecified (3) Major depressive disorder, recurrent, severe with psychotic symptoms LAURA PEREZ MD Jul 01, 2020 07:07
--- NOTE | 2020-07-01 07:26 | PDOC ---
Exam Note: Eriberto Note: This note is a late entry for 06/29/2020 covers elements not covered in my initial note. Subjective: The patient was seen face to face in the evening of 06/29/2020 with Jb BELLA. Discussed with nursing staff, reviewed the chart. The patient slept 5 hours previous night. The patient has been seeing pigs in her bed. These seem to be having more so in the evening. She gets upset sitting in the chair as I met with her in her room. Review of Systems: She is hard of hearing. No CV, , pulmonary, eye system symptoms on review. Mental Status Exam: Oriented to herself and situation. As I met with the patient she was talking about seeing pigs in her bed and was rolling them with her hand and then back in the chair. Speech is coherent. Abstraction is fair. Computation is impaired. Language function is intact. Attention span is short. Mood and affect remains somewhat anxious. Laboratory Data: Reviewed. 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 Anxiety disorder unspecified. Mild cognitive impairment. Psychotic disorder unsp ecified. Plan: Start Seroquel 12.5 mg h.s. for psychotic symptoms. Continue rest of the psychotropics unchanged. Assessment: Vital Signs/I&O: Vital Signs Date Time Temp Pulse Resp B/P (MAP) Pulse Ox O2 Delivery O2 Flow Rate FiO2 07/01/20 07:05 Room Air 07/01/20 06:00 98.3 85 16 136/83 (100) 95 06/30/20 06:00 2.0 I & O 06/30/20 06/30/20 07/01/20 15:00 23:00 07:00 Intake Total 120 ml 480 ml Balance 120 ml 480 ml Current Medications: I have reviewed the current psychotropics carefully including drug interactions. Risk benefit ratio favors no change other than as noted in my dictated progress note. Diagnosis: Problems: (1) Mild cognitive impairment (2) Anxiety disorder, unspecified (3) Major depressive disorder, recurrent, severe with psychotic symptoms LAURA PEREZ MD Jul 01, 2020 07:26
--- NOTE | 2020-07-01 07:45 | PDOC ---
Exam Note: Eriberto Note: This note is a late entry for 06/30/2020 covers elements not covered in my initial note. Subjective: The patient was seen face to face in the evening of 06/30/2020 with Arash BELLA. Discussed with nursing staff, reviewed the chart. The patient slept 7 hours previous night. She gets a little confused at times, talking about her mother being in her room later in the early afternoon, then she took a nap in the afternoon, had some pain. She received Lortab, then doing better in the evening. Review of Systems: She is hard of hearing. No CV, , pulmonary, eye system symptoms on review. Mental Status Exam: Oriented to herself and situation. Speech has some latency, coherent, rapid at times. Abstraction is fair. Computation is impaired. Language function is intact. Attention span is short. Mood and affect somewhat anxious, labile. Laboratory Data: Reviewed. 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 Anxiety disorder unspecified. Mild cognitive impairment. Psychotic disorder unspecified. Plan: No change from initial note. We will adjust psychotropics depending on her progress. Assessment: Vital Signs/I&O: Vital Signs Date Time Temp Pulse Resp B/P (MAP) Pulse Ox O2 Delivery O2 Flow Rate FiO2 07/01/20 07:05 Room Air 07/01/20 06:00 98.3 85 16 136/83 (100) 95 06/30/20 06:00 2.0 I & O 06/30/20 06/30/20 07/01/20 15:00 23:00 07:00 Intake Total 120 ml 480 ml Balance 120 ml 480 ml Current Medications: I have reviewed the current psychotropics carefully including drug interactions. Risk benefit ratio favors no change other than as noted in my dictated progress note. Diagnosis: Problems: (1) Mild cognitive impairment (2) Anxiety disorder, unspecified (3) Major depressive disorder, recurrent, severe with psychotic symptoms LAURA PEREZ MD Jul 01, 2020 07:45
[2020-07-01] MEDS: METOPROLOL SUCC 24HR ER 50 MG TAB.ER.24H. PO SCH (08:22)
[2020-07-01] MEDS: POTASSIUM CHLORIDE 20 MEQ TABLET.ER. PO SCH ×2 (08:22→20:32)
[2020-07-01] MEDS: VITAMIN E. 400 UNIT CAPSULE. PO SCH (08:22)
[2020-07-01] MEDS: CLOPIDOGREL BISULFATE 75 MG TABLET PO SCH (08:23)
[2020-07-01] MEDS: MULTIVITAMIN with MINERAL TABLET. PO SCH (08:23)
[2020-07-01] MEDS: PANTOPRAZOLE 40 MG TABLET. PO SCH (08:23)
[2020-07-01] MEDS: LISINOPRIL 20 MG TABLET PO SCH (08:23)
[2020-07-01] MEDS: amLODIPine BESYLATE 5 MG TABLET PO SCH (08:23)
[2020-07-01] MEDS: SERTRALINE 25 MG TABLET. PO SCH (08:24)
[2020-07-01] MEDS: rOPINIRole 1 MG TABLET. PO SCH ×3 (08:24→20:29)
[2020-07-01 15:45] VITALS: BP 153/81
[2020-07-01] MEDS: MELATONIN 3 MG TABLET PO SCH (20:30)
[2020-07-01] MEDS: QUEtiapine 25 MG TABLET. PO SCH (20:30)
[2020-07-01] MEDS: ATORVASTATIN CALCIUM 20 MG TABLET PO SCH (20:33)
[2020-07-01] MEDS: MIRTAZAPINE 7.5 MG TABLET. PO SCH (20:34)
--- NOTE | 2020-07-01 20:34 | PDOC ---
Exam Note: Eriberto Note: Please also refer to the separate dictated note~for this date of service dictated separately.~Patient seen individually. Discussed the patient with Nursing staff reviewed the chart.~Reviewed interim history and current functioning. Reviewed vital signs,~Labs/ Radiology~and current medications noted below. Continue current treatment with the changes noted in the dictated addendum note Assessment: Vital Signs/I&O: Vital Signs Date Time Temp Pulse Resp B/P (MAP) Pulse Ox O2 Delivery O2 Flow Rate FiO2 07/01/20 15:45 97.8 73 19 153/81 (105) 98 Room Air 06/30/20 06:00 2.0 I & O 06/30/20 06/30/20 07/01/20 15:00 23:00 07:00 Intake Total 120 ml 480 ml Balance 120 ml 480 ml Current Medications: I have reviewed the current psychotropics carefully including drug interactions. Risk benefit ratio favors no change other than as noted in my dictated progress note. Diagnosis: Problems: (1) Mild cognitive impairment (2) Anxiety disorder, unspecified (3) Major depressive disorder, recurrent, severe with psychotic symptoms LAURA PEREZ MD Jul 01, 2020 20:34
[2020-07-02 06:20] VITALS: BP 164/88
[2020-07-02 07:24] LABS: ALBUMIN 3.6 g/dL (3.4-5.0); CALCIUM 9.6 mg/dL (8.5-10.1); CREATININE 0.7 mg/dL (0.6-1.0); POTASSIUM 4.2 mmol/L (3.5-5.1); TOTAL BILIRUBIN 0.6 mg/dL (0.2-1.0); TOTAL PROTEIN 7.2 g/dL (6.4-8.2)
--- NOTE | 2020-07-02 07:37 | PDOC ---
Exam Note: Eriberto Note: This note is a late entry for 07/01/2020 covers elements not covered in my initial note. Subjective: The patient was seen face to face in the evening of 07/01/2020 with Arash BELLA. Discussed with nursing staff, reviewed the chart. The patient slept 2-3/4 hours previous night. The patient has been restless in the evening with pain. We will defer to Dr. Hobson. She did receive p.r.n. pain medications and then did better. Review of Systems: Positive for complaints of restless legs. She is hard of hearing. No CV, , pulmonary, eye system symptoms on review. Mental Status Exam: Oriented to herself. She is quite pleasant, verbal, interactive as I met with her in her room but she is hard of hearing. She complains of restless legs. We will check with Dr. Hobson to see ReQuip could be increased though it is already at 1 mg 3 times a day and if not she may benefit from the addition of Neurontin. Speech has some latency, coherent, rapid at times. Abstraction is fair. Computation is impaired. Language function is intact. Attention span is short. Mood and affect somewhat anxious. Laboratory Data: Reviewed. 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 Anxiety disorder unspecified. Mild cognitive impairment. Psychotic disorder unspecified. Plan: Start Remeron 7.5 mg h.s. for insomnia. Adjust the ReQuip or add gabapentin as noted. Continue rest unchanged. Reviewed risk-benefit ratio. All psychotropics were carefully assessed for safety. Assessment: Vital Signs/I&O: Vital Signs Date Time Temp Pulse Resp B/P (MAP) Pulse Ox O2 Delivery O2 Flow Rate FiO2 07/02/20 06:20 97.6 89 18 164/88 (113) 99 Room Air 06/30/20 06:00 2.0 I & O 07/01/20 07/01/20 07/02/20 15:00 23:00 07:00 Intake Total 0 ml 480 ml 120 ml Balance 0 ml 480 ml 120 ml Labs: Laboratory Tests Test 07/02/20 06:32 Sodium Level 142 mmol/L (136-145) Potassium Level 4.2 mmol/L (3.5-5.1) Chloride Level 105 mmol/L (98-107) Carbon Dioxide Level 28 mmol/L (21-32) Anion Gap 9 (6-14) Blood Urea Nitrogen 14 mg/dL (7-20) Creatinine 0.7 mg/dL (0.6-1.0) Estimated GFR (Cockcroft-Gault) 79.0 BUN/Creatinine Ratio 20 (6-20) Glucose Level 100 mg/dL (70-99) H Calcium Level 9.6 mg/dL (8.5-10.1) Total Bilirubin 0.6 mg/dL (0.2-1.0) Aspartate Amino Transferase (AST) 23 U/L (15-37) Alanine Aminotransferase (ALT) 25 U/L (14-59) Alkaline Phosphatase 96 U/L (46-116) Total Protein 7.2 g/dL (6.4-8.2) Albumin 3.6 g/dL (3.4-5.0) Albumin/Globulin Ratio 1.0 (1.0-1.7) Current Medications: Meds: Current Medications Medications (Trade) Dose Ordered Sig/Tamanna Route PRN Reason Start Time Stop Time Status Last Admin Dose Admin Mirtazapine (Remeron) 7.5 mg QHS PO 07/01/20 21:00 07/01/20 20:34 I have reviewed the current psychotropics carefully including drug interactions. Risk benefit ratio favors no change other than as noted in my dictated progress note. Diagnosis: Problems: (1) Mild cognitive impairment (2) Anxiety disorder, unspecified (3) Major depressive disorder, recurrent, severe with psychotic symptoms LAURA PEREZ MD Jul 02, 2020 07:36
[2020-07-02] MEDS: PANTOPRAZOLE 40 MG TABLET. PO SCH (07:57)
[2020-07-02] MEDS: VITAMIN E. 400 UNIT CAPSULE. PO SCH (07:57)
[2020-07-02] MEDS: amLODIPine BESYLATE 5 MG TABLET PO SCH (07:57)
[2020-07-02] MEDS: CLOPIDOGREL BISULFATE 75 MG TABLET PO SCH (07:58)
[2020-07-02] MEDS: rOPINIRole 1 MG TABLET. PO SCH ×2 (07:58→13:24)
[2020-07-02] MEDS: MULTIVITAMIN with MINERAL TABLET. PO SCH (07:58)
[2020-07-02] MEDS: METOPROLOL SUCC 24HR ER 50 MG TAB.ER.24H. PO SCH (07:58)
[2020-07-02] MEDS: LISINOPRIL 20 MG TABLET PO SCH (07:59)
[2020-07-02] MEDS: SERTRALINE 25 MG TABLET. PO SCH (07:59)
[2020-07-02] MEDS: POTASSIUM CHLORIDE 20 MEQ TABLET.ER. PO SCH ×2 (07:59→20:16)
[2020-07-02 09:46] LABS: BASO # 0.1 x10^3/uL (0.0-0.2); BASO % 1 % (0-3); EOS # 0.2 x10^3/uL (0.0-0.7); EOS % 4 % (0-3); HEMATOCRIT 45.7 % (36.0-47.0); HEMOGLOBIN 14.7 g/dL (12.0-15.5); LYMPH # 1.4 x10^3/uL (1.0-4.8); LYMPH % 21 % (24-48); MEAN CORPUSCULAR HEMOGLOBIN 30 pg (25-35); MEAN CORPUSCULAR HGB CONC 32 g/dL (31-37); MEAN CORPUSCULAR VOLUME 93 fL (79-100); MONO # 0.8 x10^3/uL (0.0-1.1); MONO % 12 % (0-9); NEUT # 4.1 x10^3uL (1.8-7.7); NEUT % 63 % (31-73); PLATELET COUNT 228 x10^3/uL (140-400); RED BLOOD COUNT 4.89 x10^6/uL (3.50-5.40); RED CELL DISTRIBUTION WIDTH 15.3 % (11.5-14.5); WHITE BLOOD COUNT 6.5 x10^3/uL (4.0-11.0)
[2020-07-02] MEDS: HYDROcodone/APAP 10/325 1 TAB TABLET PO PRN ×2 (10:57→22:50)
[2020-07-02 16:11] VITALS: BP 143/81
[2020-07-02] MEDS: QUEtiapine 25 MG TABLET. PO SCH (20:15)
[2020-07-02] MEDS: MIRTAZAPINE 7.5 MG TABLET. PO SCH (20:15)
[2020-07-02] MEDS: ATORVASTATIN CALCIUM 20 MG TABLET PO SCH (20:16)
[2020-07-02] MEDS: MELATONIN 3 MG TABLET PO SCH (20:16)
[2020-07-02] MEDS: traZODone 50 MG TABLET. PO PRN ×2 (20:17→22:50)
[2020-07-02] MEDS: rOPINIRole 2 MG TABLET. PO SCH (20:18)
[2020-07-02] MEDS: ESTRADIOL 0.01% VAGINAL CREAM 42.5GM TUBE. VG SCH (20:21)
--- NOTE | 2020-07-02 20:50 | PDOC ---
Exam Note: Eriberto Note: Please also refer to the separate dictated note~for this date of service dictated separately.~Patient seen individually. Discussed the patient with Nursing staff reviewed the chart.~Reviewed interim history and current functioning. Reviewed vital signs,~Labs/ Radiology~and current medications noted below. Continue current treatment with the changes noted in the dictated addendum note Assessment: Vital Signs/I&O: Vital Signs Date Time Temp Pulse Resp B/P (MAP) Pulse Ox O2 Delivery O2 Flow Rate FiO2 07/02/20 16:11 97.8 90 18 143/81 (101) 99 07/02/20 12:00 Room Air 06/30/20 06:00 2.0 I & O 07/01/20 07/01/20 07/02/20 15:00 23:00 07:00 Intake Total 0 ml 480 ml 120 ml Balance 0 ml 480 ml 120 ml Labs: Laboratory Tests Test 07/02/20 06:32 White Blood Count 6.5 x10^3/uL (4.0-11.0) Red Blood Count 4.89 x10^6/uL (3.50-5.40) Hemoglobin 14.7 g/dL (12.0-15.5) Hematocrit 45.7 % (36.0-47.0) Mean Corpuscular Volume 93 fL (79-100) Mean Corpuscular Hemoglobin 30 pg (25-35) Mean Corpuscular Hemoglobin Concent 32 g/dL (31-37) Red Cell Distribution Width 15.3 % (11.5-14.5) H Platelet Count 228 x10^3/uL (140-400) Neutrophils (%) (Auto) 63 % (31-73) Lymphocytes (%) (Auto) 21 % (24-48) L Monocytes (%) (Auto) 12 % (0-9) H Eosinophils (%) (Auto) 4 % (0-3) H Basophils (%) (Auto) 1 % (0-3) Neutrophils # (Auto) 4.1 x10^3uL (1.8-7.7) Lymphocytes # (Auto) 1.4 x10^3/uL (1.0-4.8) Monocytes # (Auto) 0.8 x10^3/uL (0.0-1.1) Eosinophils # (Auto) 0.2 x10^3/uL (0.0-0.7) Basophils # (Auto) 0.1 x10^3/uL (0.0-0.2) Sodium Level 142 mmol/L (136-145) Potassium Level 4.2 mmol/L (3.5-5.1) Chloride Level 105 mmol/L (98-107) Carbon Dioxide Level 28 mmol/L (21-32) Anion Gap 9 (6-14) Blood Urea Nitrogen 14 mg/dL (7-20) Creatinine 0.7 mg/dL (0.6-1.0) Estimated GFR (Cockcroft-Gault) 79.0 BUN/Creatinine Ratio 20 (6-20) Glucose Level 100 mg/dL (70-99) H Calcium Level 9.6 mg/dL (8.5-10.1) Total Bilirubin 0.6 mg/dL (0.2-1.0) Aspartate Amino Transferase (AST) 23 U/L (15-37) Alanine Aminotransferase (ALT) 25 U/L (14-59) Alkaline Phosphatase 96 U/L (46-116) Total Protein 7.2 g/dL (6.4-8.2) Albumin 3.6 g/dL (3.4-5.0) Albumin/Globulin Ratio 1.0 (1.0-1.7) Current Medications: Meds: Current Medications Medications (Trade) Dose Ordered Sig/Tamanna Route PRN Reason Start Time Stop Time Status Last Admin Dose Admin Mirtazapine (Remeron) 7.5 mg QHS PO 07/01/20 21:00 07/02/20 20:15 Ropinirole HCl (Requip) 2 mg QHS PO 07/02/20 21:00 07/02/20 20:18 I have reviewed the current psychotropics carefully including drug interactions. Risk benefit ratio favors no change other than as noted in my dictated progress note. Diagnosis: Problems: (1) Mild cognitive impairment (2) Anxiety disorder, unspecified (3) Major depressive disorder, recurrent, severe with psychotic symptoms LAURA PEREZ MD Jul 02, 2020 20:50
[2020-07-03 06:13] VITALS: BP 137/71
--- NOTE | 2020-07-03 07:19 | PDOC ---
Exam Note: Eriberto Note: This note is a late entry for 07/02/2020 covers elements not covered in my initial note. Subjective: The patient was seen face to face in the evening of 07/02/2020 with Rena BELLA. Discussed with nursing staff, reviewed the chart. The patient slept 7 hours previous night. No hallucinations noted. She has continued to have significant symptoms of restless leg syndrome and ReQuip was increased per Dr. Hobson to 1 mg a.m. and noon and 2 mg h.s. She seems to be much more comfortable late in the evening on 07/02 as I met with her in her room. Review of Systems: She is somewhat hard of hearing. No CV, , pulmonary, eye system symptoms on review. Mental Status Exam: Oriented to herself. She is quite pleasant, verbal, interactive as I met with her in her room, somewhat distractible but smiling, states her restless leg is better. Speech has some latency, coherent, rapid at times. Abstraction is fair. Computation is impaired. Language function is intact. Attention span is short. Mood and affect somewhat anxious. Laboratory Data: Reviewed. 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 Anxiety disorder unspecified. Mild cognitive impairment. Psychotic disorder unspecified. Plan: No change from initial note and as noted above. Assessment: Vital Signs/I&O: Vital Signs Date Time Temp Pulse Resp B/P (MAP) Pulse Ox O2 Delivery O2 Flow Rate FiO2 07/03/20 06:13 97.4 70 18 137/71 (93) 97 07/02/20 12:00 Room Air 06/30/20 06:00 2.0 I & O 0 07/02/20 07/02/20 07/03/20 15:00 23:00 07:00 Intake Total 840 ml 360 ml 120 ml Balance 840 ml 360 ml 120 ml Current Medications: Meds: Current Medications Medications (Trade) Dose Ordered Sig/Tamanna Route PRN Reason Start Time Stop Time Status Last Admin Dose Admin Ropinirole HCl (Requip) 2 mg QHS PO 07/02/20 21:00 07/02/20 20:18 I have reviewed the current psychotropics carefully including drug interactions. Risk benefit ratio favors no change other than as noted in my dictated progress note. Diagnosis: Problems: (1) Mild cognitive impairment (2) Anxiety disorder, unspecified (3) Major depressive disorder, recurrent, severe with psychotic symptoms LAURA PEREZ MD Jul 03, 2020 07:19
[2020-07-03] MEDS: VITAMIN E. 400 UNIT CAPSULE. PO SCH (08:44)
[2020-07-03] MEDS: PANTOPRAZOLE 40 MG TABLET. PO SCH (08:44)
[2020-07-03] MEDS: MULTIVITAMIN with MINERAL TABLET. PO SCH (08:45)
[2020-07-03] MEDS: SERTRALINE 25 MG TABLET. PO SCH (08:45)
[2020-07-03] MEDS: amLODIPine BESYLATE 5 MG TABLET PO SCH (08:45)
[2020-07-03] MEDS: POTASSIUM CHLORIDE 20 MEQ TABLET.ER. PO SCH ×2 (08:45→20:59)
[2020-07-03] MEDS: METOPROLOL SUCC 24HR ER 50 MG TAB.ER.24H. PO SCH (08:45)
[2020-07-03] MEDS: rOPINIRole 1 MG TABLET. PO SCH ×2 (08:46→14:10)
[2020-07-03] MEDS: CLOPIDOGREL BISULFATE 75 MG TABLET PO SCH (08:46)
[2020-07-03] MEDS: LISINOPRIL 20 MG TABLET PO SCH (08:46)
[2020-07-03] MEDS: HYDROcodone/APAP 10/325 1 TAB TABLET PO PRN (14:21)
[2020-07-03 16:24] VITALS: BP 110/78
--- NOTE | 2020-07-03 20:43 | PDOC ---
Exam Note: Eriberto Note: Please also refer to the separate dictated note~for this date of service dictated separately.~Patient seen individually. Discussed the patient with Nursing staff reviewed the chart.~Reviewed interim history and current functioning. Reviewed vital signs,~Labs/ Radiology~and current medications noted below. Continue current treatment with the changes noted in the dictated addendum note Assessment: Vital Signs/I&O: Vital Signs Date Time Temp Pulse Resp B/P (MAP) Pulse Ox O2 Delivery O2 Flow Rate FiO2 07/03/20 16:24 97.9 109 16 110/78 (89) 98 07/03/20 14:21 Room Air 06/30/20 06:00 2.0 I & O 0 07/02/20 07/02/20 07/03/20 15:00 23:00 07:00 Intake Total 840 ml 360 ml 120 ml Balance 840 ml 360 ml 120 ml Current Medications: Meds: Current Medications Medications (Trade) Dose Ordered Sig/Tamanna Route PRN Reason Start Time Stop Time Status Last Admin Dose Admin Ropinirole HCl (Requip) 1 mg BID@0900,1400 PO 07/03/20 09:00 07/03/20 14:10 Ropinirole HCl (Requip) 2 mg QHS PO 07/02/20 21:00 07/02/20 20:18 I have reviewed the current psychotropics carefully including drug interactions. Risk benefit ratio favors no change other than as noted in my dictated progress note. Diagnosis: Problems: (1) Mild cognitive impairment (2) Anxiety disorder, unspecified (3) Major depressive disorder, recurrent, severe with psychotic symptoms LAURA PEREZ MD Jul 03, 2020 20:43
[2020-07-03] MEDS: MELATONIN 3 MG TABLET PO SCH (20:59)
[2020-07-03] MEDS: rOPINIRole 2 MG TABLET. PO SCH (20:59)
[2020-07-03] MEDS: QUEtiapine 25 MG TABLET. PO SCH (21:00)
[2020-07-03] MEDS: MIRTAZAPINE 7.5 MG TABLET. PO SCH (21:00)
[2020-07-03] MEDS: traZODone 50 MG TABLET. PO PRN (21:00)
[2020-07-03] MEDS: ATORVASTATIN CALCIUM 20 MG TABLET PO SCH (21:00)
[2020-07-04] MEDS: traZODone 50 MG TABLET. PO PRN (01:02)
[2020-07-04 06:21] VITALS: BP 111/60
[2020-07-04] MEDS: MULTIVITAMIN with MINERAL TABLET. PO SCH (09:10)
[2020-07-04] MEDS: VITAMIN E. 400 UNIT CAPSULE. PO SCH (09:10)
[2020-07-04] MEDS: rOPINIRole 1 MG TABLET. PO SCH ×2 (09:10→15:05)
[2020-07-04] MEDS: CLOPIDOGREL BISULFATE 75 MG TABLET PO SCH (09:11)
[2020-07-04] MEDS: METOPROLOL SUCC 24HR ER 50 MG TAB.ER.24H. PO SCH (09:11)
[2020-07-04] MEDS: PANTOPRAZOLE 40 MG TABLET. PO SCH (09:11)
[2020-07-04] MEDS: POTASSIUM CHLORIDE 20 MEQ TABLET.ER. PO SCH ×2 (09:11→20:11)
[2020-07-04] MEDS: LISINOPRIL 20 MG TABLET PO SCH (09:11)
[2020-07-04] MEDS: SERTRALINE 25 MG TABLET. PO SCH (09:11)
[2020-07-04] MEDS: amLODIPine BESYLATE 5 MG TABLET PO SCH (09:12)
[2020-07-04] MEDS: HYDROcodone/APAP 10/325 1 TAB TABLET PO PRN (15:07)
[2020-07-04 16:28] VITALS: BP 108/69
[2020-07-04] MEDS: MIRTAZAPINE 7.5 MG TABLET. PO SCH (20:10)
[2020-07-04] MEDS: MELATONIN 3 MG TABLET PO SCH (20:10)
[2020-07-04] MEDS: ATORVASTATIN CALCIUM 20 MG TABLET PO SCH (20:10)
[2020-07-04] MEDS: rOPINIRole 2 MG TABLET. PO SCH (20:11)
[2020-07-04] MEDS: QUEtiapine 25 MG TABLET. PO SCH (20:11)
[2020-07-04] MEDS: ESTRADIOL 0.01% VAGINAL CREAM 42.5GM TUBE. VG SCH (20:15)
--- NOTE | 2020-07-04 20:41 | PDOC ---
Exam Note: Eriberto Note: Please also refer to the separate dictated note~for this date of service dictated separately.~Patient seen individually. Discussed the patient with Nursing staff reviewed the chart.~Reviewed interim history and current functioning. Reviewed vital signs,~Labs/ Radiology~and current medications noted below. Continue current treatment with the changes noted in the dictated addendum note Assessment: Vital Signs/I&O: Vital Signs Date Time Temp Pulse Resp B/P (MAP) Pulse Ox O2 Delivery O2 Flow Rate FiO2 07/04/20 16:28 98.5 94 18 108/69 (82) 90 07/04/20 06:21 Room Air 06/30/20 06:00 2.0 I & O 07/03/20 07/03/20 07/04/20 15:00 23:00 07:00 Intake Total 805 ml 360 ml Balance 805 ml 360 ml Current Medications: I have reviewed the current psychotropics carefully including drug interactions. Risk benefit ratio favors no change other than as noted in my dictated progress note. Diagnosis: Problems: (1) Mild cognitive impairment (2) Anxiety disorder, unspecified (3) Major depressive disorder, recurrent, severe with psychotic symptoms LAURA PEREZ MD Jul 04, 2020 20:41
[2020-07-05 05:51] VITALS: BP 127/72
--- NOTE | 2020-07-05 07:00 | PDOC ---
Exam Note: Eriberto Note: This note is a late entry for 07/03/2020 covers elements not covered in my initial note. Subjective: The patient was seen face to face in the evening of 07/03/2020 with Blanca BELLA. Discussed with nursing staff, reviewed the chart. The patient did well in the morning. Around 2 p.m., she was more anxious, restless. She slept 7 hours previous night. At one point when questioned she felt the year was 1919, then corrected herself to 2019. I met with her in her room. Her ReQuip has been increased and her symptoms of restless legs appear better. She still gets intermittently psychotic but less than before. Review of Systems: She is somewhat hard of hearing. No CV, , pulmonary, eye system symptoms on review. Mental Status Exam: Oriented to herself. She is quite pleasant, more anxious, restless. Speech has some latency, coherent, rapid at times. Abstraction is fair. Computation is impaired. Language function is intact. Attention span is short. Mood and affect anxious. Laboratory Data: Reviewed. 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 Anxiety disorder unspecified. Mild cognitive impairment. Psychotic disorder unspecified. Plan: No change from initial note and as noted above. Assessment: Vital Signs/I&O: Vital Signs Date Time Temp Pulse Resp B/P (MAP) Pulse Ox O2 Delivery O2 Flow Rate FiO2 07/05/20 05:51 98.0 82 16 127/72 (90) 97 Room Air 06/30/20 06:00 2.0 I & O 07/04/20 07/04/20 07/05/20 14:59 22:59 06:59 Intake Total 650 ml 300 ml Balance 650 ml 300 ml Current Medications: I have reviewed the current psychotropics carefully including drug interactions. Risk benefit ratio favors no change other than as noted in my dictated progress note. Diagnosis: Problems: (1) Mild cognitive impairment (2) Anxiety disorder, unspecified (3) Major depressive disorder, recurrent, severe with psychotic symptoms LAURA PEREZ MD Jul 05, 2020 07:00
[2020-07-05] MEDS: SERTRALINE 25 MG TABLET. PO SCH (08:05)
[2020-07-05] MEDS: MULTIVITAMIN with MINERAL TABLET. PO SCH (08:08)
[2020-07-05] MEDS: amLODIPine BESYLATE 5 MG TABLET PO SCH (08:08)
[2020-07-05] MEDS: METOPROLOL SUCC 24HR ER 50 MG TAB.ER.24H. PO SCH (08:09)
[2020-07-05] MEDS: rOPINIRole 1 MG TABLET. PO SCH ×2 (08:09→13:58)
[2020-07-05] MEDS: POTASSIUM CHLORIDE 20 MEQ TABLET.ER. PO SCH ×2 (08:09→20:09)
[2020-07-05] MEDS: CLOPIDOGREL BISULFATE 75 MG TABLET PO SCH (08:09)
[2020-07-05] MEDS: VITAMIN E. 400 UNIT CAPSULE. PO SCH (08:09)
[2020-07-05] MEDS: PANTOPRAZOLE 40 MG TABLET. PO SCH (08:09)
[2020-07-05] MEDS: LISINOPRIL 20 MG TABLET PO SCH (08:11)
--- NOTE | 2020-07-05 12:31 | TX PLAN ---
Interdisciplinary Tx Plan Admission Information Jun 27, 2020 at 15:25 Legal Status (on Admission): Voluntary DPOA/Guardian Name: Félix Cheema Contact Other Contact Name: Gemma Arroyo Amy Other Contact Verified Code Status: DNR Allergies: Coded Allergies: NSAIDS (Non-Steroidal Anti-Inflamma (Verified Allergy, Severe, anaphylaxis, 06/28/20) Sulfa (Sulfonamide Antibiotics) (Verified Allergy, Unknown, 06/26/20) doxycycline (Verified Allergy, Unknown, 06/26/20) lansoprazole (Verified Allergy, Unknown, 06/26/20) oseltamivir (Verified Allergy, Unknown, 06/26/20) paroxetine (Verified Allergy, Unknown, 06/26/20) ranitidine (Verified Allergy, Unknown, 06/26/20) Diagnoses Primary Diagnosis: Major depressive disorder, recurrent with psychotic features, mild cognitive impairment; anxiety disorder, unspecified. Reasons for Admission: Delusions, Agitated, Depressed, Sig. Change Appetite, Sig. Change Sleep, Anxiety/Panic, Hallucinations Problem in Patient's Words: Per pt, "I've been having lots of trouble with temper, which is unusual for me. It is not my personality. I've made people mad. I have restless legs and that is terrible. 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 You can look at me wrong and I'll start crying. I've taken hydrocodone for years and would like to get off of it. A doctor put me on it a long time ago and my current doctor said that he would agree to take one pill away a month from me." Additional Admission Comments: Per intake record, agitated, anxious, depressed, poor appetite, insominia,thinks others are talking about her, voices from TV are telling her what to do, sees women outside her window with chainsaws, feels like no one cares for her and wants to kick her out. Problems Active Problems: A/V Hallucinations of seeing dogs and hearing music. Delusions of thinking that others talk about her. Inactive Problems: None Pt Strengths/Limitations Ability for [place]: Fair Cognitive Functioning/Ability: Fair Communication Skills/Ability: Good Financial Resources: Good Insight/Judgement: Fair Intellectual Ability: Fair Physical Health: Poor Social Skills: Poor Stability in Family: Good Stability in School/Work: Good Verbal Skills: Good Discharge Criteria Discharge Criteria: OP monitor medical prob, Adequate arrangements @DC, Adequate self-care, Verbal commit med comply, Improved behavior, Improved mood/thought Preliminary Discharge Plan Preliminary DC Plan: Assisted Living Special Precautions Special Precautions: Agitation/Assault Fall Risk: Moderate Other Precautions (specify): Pt uses a walker Initial D/C Plan Pt plan is to return to [facility]. Follow up with PCP. Psychiatrist to follow if available through facility. Currently Utilized Resources Currently Utilized Resources/P: PCP is Dr. Herb Guerra [phone] DPOA is son Félix Cheema [phone] Living facility is [facility]- contact is Gemma Arroyo or Amy (P) [phone] Referrals Community Resources: None noted at this time. Identified Problems/Hx/Goals Objectives/Short-Term Goals Short Term Goals: Dec. Anxiety/Panic, Dec. Hallucination/Delus, Dec. Symp. 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 Education: Pt reports that she attended high school through her [place] year; not completing high school so that she could get and start a family. Treatment Plan Explained Patient/[employer] had this treatment plan explained to him/her as indicated by the signature below and has been given the opportunity to ask questions and make suggestions: Date: Patient/[employer] Signature: Status Update Update Pt reportedly is eating an average of 75% of her meals. She had been sleeping an average of 4 hours each night, yet last evening, she got 8.5 hours. Her hallucinations seem to have slowed down and they are usually in the afternoon if she has them. She is reportedly easily redirected if she has any by staff telling her that nothing is there. Pt is [place] so sometimes she thinks she heard something, but realizes that it could just be related to her hearing. Pt has had a hx of UTIs, but at this time, she is negative. Pt continues to struggle with restless legs and medication from that could have an effect on hallucinations. Pt has minimal involvement in groups; most likely d/t restless legs and [place]. Group facilitators and other staff will continue to encourage pt to participate. RANDY CARVALHO Jul 05, 2020 12:31
[2020-07-05 16:22] VITALS: BP 146/97
[2020-07-05] MEDS: rOPINIRole 2 MG TABLET. PO SCH (20:08)
[2020-07-05] MEDS: ATORVASTATIN CALCIUM 20 MG TABLET PO SCH (20:09)
[2020-07-05] MEDS: MIRTAZAPINE 7.5 MG TABLET. PO SCH (20:09)
[2020-07-05] MEDS: MELATONIN 3 MG TABLET PO SCH (20:09)
[2020-07-05] MEDS: QUEtiapine 25 MG TABLET. PO SCH (20:09)
--- NOTE | 2020-07-05 20:40 | PDOC ---
Exam Note: Eriberto Note: Please also refer to the separate dictated note~for this date of service dictated separately.~Patient seen individually. Discussed the patient with Nursing staff reviewed the chart.~Reviewed interim history and current functioning. Reviewed vital signs,~Labs/ Radiology~and current medications noted below. Continue current treatment with the changes noted in the dictated addendum note Assessment: Vital Signs/I&O: Vital Signs Date Time Temp Pulse Resp B/P (MAP) Pulse Ox O2 Delivery O2 Flow Rate FiO2 07/05/20 16:22 98.9 95 16 146/97 (113) 97 07/05/20 05:51 Room Air 06/30/20 06:00 2.0 I & O 0 07/04/20 07/04/20 07/05/20 15:00 23:00 07:00 Intake Total 650 ml 300 ml Balance 650 ml 300 ml Current Medications: I have reviewed the current psychotropics carefully including drug interactions. Risk benefit ratio favors no change other than as noted in my dictated progress note. Diagnosis: Problems: (1) Mild cognitive impairment (2) Anxiety disorder, unspecified (3) Major depressive disorder, recurrent, severe with psychotic symptoms LAURA PEREZ MD Jul 05, 2020 20:40
[2020-07-06] MEDS: HYDROcodone/APAP 10/325 1 TAB TABLET PO PRN ×2 (01:11→18:17)
[2020-07-06] MEDS: traZODone 50 MG TABLET. PO PRN ×4 (01:49→23:25)
[2020-07-06 05:46] VITALS: BP 128/78
--- NOTE | 2020-07-06 08:32 | PDOC ---
Exam Note: Eriberto Note: This note is a late entry for 07/04/2020 covers elements not covered in my initial note. Subjective: The patient was seen face to face in the evening of 07/04/2020 with Blanca BELLA. Discussed with nursing staff, reviewed the chart. She slept 4-1/2 hours previous night. The patient has expressed some concern about why she is here, gets somewhat anxious, has had some hallucinations intermittently, seeing different animals on her bed but less intense than before. Review of Systems: She is hard of hearing. No CV, , pulmonary, eye system symptoms on review. Mental Status Exam: Oriented to herself. She is quite animated, verbal, very appropriate asking me how my day was going. Speech has some latency, coherent, rapid at times. Abstraction is fair. Computation is impaired. Language function is intact. Attention span is short. Mood and affect anxious. Laboratory Data: Reviewed. 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 Anxiety disorder unspecified. Mild cognitive impairment. Psychotic disorder unspecified. Plan: No change from initial note. If psychotic symptoms persist, we may need to increase the Seroquel but for now we will continue Zoloft and Seroquel at current dosage together with melatonin and trazodone for insomnia, Remeron 7.5 mg h.s. Assessment: Vital Signs/I&O: Vital Signs Date Time Temp Pulse Resp B/P (MAP) Pulse Ox O2 Delivery O2 Flow Rate FiO2 07/06/20 05:46 97.6 84 18 128/78 (95) 96 Room Air I & O 07/05/20 07/05/20 07/06/20 15:00 23:00 07:00 Intake Total 440 ml 480 ml Balance 440 ml 480 ml Current Medications: I have reviewed the current psychotropics carefully including drug interactions. Risk benefit ratio favors no change other than as noted in my dictated progress note. Diagnosis: Problems: (1) Visual hallucination (2) Mild cognitive impairment (3) Anxiety disorder, unspecified (4) Major depressive disorder, recurrent, severe with psychotic symptoms LAURA PEREZ MD Jul 06, 2020 08:32
--- NOTE | 2020-07-06 08:33 | PDOC ---
Exam Note: Eriberto Note: This note is a late entry for 07/05/2020 covers elements not covered in my initial note. Subjective: The patient was reviewed on telehealth rounds in the morning of 07/05/2020 for treatment team meeting with Bella (secondary social studies teacher), Ariela, activity therapy, and Blanca BELLA, because there was a patient who turned up positive for Covid-19 infection on the unit and the unit has been closed by the [facility] Department for any admissions or discharges once again. Discussed with nursing staff, reviewed the chart. The patients son Félix who is the DPOA attended the treatment team meeting. We had a lengthy discussion about the patients diagnoses, progress, the fact that her ReQuip could be worsening hallucinations, and Seroquel that we are using to help with her mood and anxiety symptoms, psychotic symptoms. Average sleep 4 hours. Appetite is 75%. She slept 8-1/2 hours previous night. Previous evening she was hallucinating about a pig at times and the foot of a cat but then has been better earlier in the day. Late in the evening on 07/05 she felt there was an eight car pile-up outside. She had a long telephone conversation with her son for about 1 hour and nursing staff overheard her sharing some of the psychotic symptoms with the son as well. Review of Systems: She is somewhat hard of hearing. No CV, , pulmonary, eye system symptoms on review. Mental Status Exam: Oriented to herself. She is quite pleasant, more anxious, restless. Speech has some latency, coherent, rapid at times. Abstraction is fair. Computation is impaired. Language function is intact. Attention span is short. Mood and affect anxious. Laboratory Data: Reviewed. 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 Anxiety disorder unspecified. Mild cognitive impairment. Psychotic disorder unspecified. Plan: We may increase the Seroquel further depending on her progress. Continue rest of the psychotropics from initial note. Assessment: Vital Signs/I&O: Vital Signs Date Time Temp Pulse Resp B/P (MAP) Pulse Ox O2 Delivery O2 Flow Rate FiO2 07/06/20 05:46 97.6 84 18 128/78 (95) 96 Room Air I & O 07/05/20 07/05/20 07/06/20 15:00 23:00 07:00 Intake Total 440 ml 480 ml Balance 440 ml 480 ml Current Medications: I have reviewed the current psychotropics carefully including drug interactions. Risk benefit ratio favors no change other than as noted in my dictated progress note. Diagnosis: Problems: (1) Mild cognitive impairment (2) Anxiety disorder, unspecified (3) Major depressive disorder, recurrent, severe with psychotic symptoms LAURA PEREZ MD Jul 06, 2020 08:33
[2020-07-06] MEDS: POTASSIUM CHLORIDE 20 MEQ TABLET.ER. PO SCH ×2 (09:03→19:45)
[2020-07-06] MEDS: SERTRALINE 25 MG TABLET. PO SCH (09:04)
[2020-07-06] MEDS: rOPINIRole 1 MG TABLET. PO SCH ×2 (09:04→13:32)
[2020-07-06] MEDS: PANTOPRAZOLE 40 MG TABLET. PO SCH (09:04)
[2020-07-06] MEDS: MULTIVITAMIN with MINERAL TABLET. PO SCH (09:04)
[2020-07-06] MEDS: amLODIPine BESYLATE 5 MG TABLET PO SCH (09:04)
[2020-07-06] MEDS: CLOPIDOGREL BISULFATE 75 MG TABLET PO SCH (09:04)
[2020-07-06] MEDS: VITAMIN E. 400 UNIT CAPSULE. PO SCH (09:04)
[2020-07-06] MEDS: LISINOPRIL 20 MG TABLET PO SCH (09:04)
[2020-07-06] MEDS: METOPROLOL SUCC 24HR ER 50 MG TAB.ER.24H. PO SCH (09:04)
[2020-07-06 15:42] VITALS: BP 139/89
[2020-07-06] MEDS: MIRTAZAPINE 7.5 MG TABLET. PO SCH (19:42)
[2020-07-06] MEDS: rOPINIRole 2 MG TABLET. PO SCH (19:42)
[2020-07-06] MEDS: ATORVASTATIN CALCIUM 20 MG TABLET PO SCH (19:45)
[2020-07-06] MEDS: MELATONIN 3 MG TABLET PO SCH (19:46)
--- NOTE | 2020-07-06 20:51 | PDOC ---
Exam Note: Eriberto Note: Please also refer to the separate dictated note~for this date of service dictated separately.~Patient seen individually. Discussed the patient with Nursing staff reviewed the chart.~Reviewed interim history and current functioning. Reviewed vital signs,~Labs/ Radiology~and current medications noted below. Continue current treatment with the changes noted in the dictated addendum note Assessment: Vital Signs/I&O: Vital Signs Date Time Temp Pulse Resp B/P (MAP) Pulse Ox O2 Delivery O2 Flow Rate FiO2 07/06/20 18:17 18 99 Room Air 07/06/20 15:42 97.8 86 139/89 (106) I & O 07/05/20 07/05/20 07/06/20 15:00 23:00 07:00 Intake Total 440 ml 480 ml Balance 440 ml 480 ml Current Medications: Meds: Current Medications Medications (Trade) Dose Ordered Sig/Tamanna Route PRN Reason Start Time Stop Time Status Last Admin Dose Admin Quetiapine Fumarate (SEROquel) 37.5 mg QHS PO 07/06/20 21:00 07/06/20 19:44 I have reviewed the current psychotropics carefully including drug interactions. Risk benefit ratio favors no change other than as noted in my dictated progress note. Diagnosis: Problems: (1) Mild cognitive impairment (2) Anxiety disorder, unspecified (3) Major depressive disorder, recurrent, severe with psychotic symptoms LAURA PEREZ MD Jul 06, 2020 20:51
[2020-07-06] MEDS ORDERED: QUEtiapine 25 MG TABLET. PO SCH (21:00)
[2020-07-06] MEDS: ESTRADIOL 0.01% VAGINAL CREAM 42.5GM TUBE. VG SCH (21:49)
[2020-07-07 06:00] VITALS: BP 143/87
[2020-07-07] MEDS: PANTOPRAZOLE 40 MG TABLET. PO SCH (09:14)
[2020-07-07] MEDS: METOPROLOL SUCC 24HR ER 50 MG TAB.ER.24H. PO SCH (09:15)
[2020-07-07] MEDS: rOPINIRole 1 MG TABLET. PO SCH ×2 (09:15→14:00)
[2020-07-07] MEDS: POTASSIUM CHLORIDE 20 MEQ TABLET.ER. PO SCH ×2 (09:15→21:26)
[2020-07-07] MEDS: LISINOPRIL 20 MG TABLET PO SCH (09:15)
[2020-07-07] MEDS: CLOPIDOGREL BISULFATE 75 MG TABLET PO SCH (09:15)
[2020-07-07] MEDS: MULTIVITAMIN with MINERAL TABLET. PO SCH (09:15)
[2020-07-07] MEDS: VITAMIN E. 400 UNIT CAPSULE. PO SCH (09:15)
[2020-07-07] MEDS: SERTRALINE 25 MG TABLET. PO SCH (09:15)
[2020-07-07] MEDS: amLODIPine BESYLATE 5 MG TABLET PO SCH (09:16)
[2020-07-07 15:00] VITALS: BP 142/80
--- NOTE | 2020-07-07 20:58 | PDOC ---
Exam Note: Eriberto Note: Please also refer to the separate dictated note~for this date of service dictated separately.~Patient seen individually. Discussed the patient with Nursing staff reviewed the chart.~Reviewed interim history and current functioning. Reviewed vital signs,~Labs/ Radiology~and current medications noted below. Continue current treatment with the changes noted in the dictated addendum note Assessment: Vital Signs/I&O: Vital Signs Date Time Temp Pulse Resp B/P (MAP) Pulse Ox O2 Delivery O2 Flow Rate FiO2 07/07/20 15:00 97.4 94 22 142/80 (100) 97 Room Air I & O 07/06/20 07/06/20 07/07/20 15:00 23:00 07:00 Intake Total 720 ml 160 ml Balance 720 ml 160 ml Current Medications: Meds: Current Medications Medications (Trade) Dose Ordered Sig/Tamanna Route PRN Reason Start Time Stop Time Status Last Admin Dose Admin Quetiapine Fumarate (SEROquel) 37.5 mg QHS PO 07/06/20 21:00 07/07/20 18:38 DC 07/06/20 19:44 I have reviewed the current psychotropics carefully including drug interactions. Risk benefit ratio favors no change other than as noted in my dictated progress note. Diagnosis: Problems: (1) Mild cognitive impairment (2) Anxiety disorder, unspecified (3) Major depressive disorder, recurrent, severe with psychotic symptoms LAURA PEREZ MD Jul 07, 2020 20:58
[2020-07-07] MEDS ORDERED: QUEtiapine 25 MG TABLET. PO SCH (21:00)
[2020-07-07] MEDS: MIRTAZAPINE 7.5 MG TABLET. PO SCH (21:25)
[2020-07-07] MEDS: rOPINIRole 2 MG TABLET. PO SCH (21:25)
[2020-07-07] MEDS: MELATONIN 3 MG TABLET PO SCH (21:26)
[2020-07-07] MEDS: ATORVASTATIN CALCIUM 20 MG TABLET PO SCH (21:26)
[2020-07-07] MEDS: traZODone 50 MG TABLET. PO PRN (21:27)
[2020-07-07] MEDS: HYDROcodone/APAP 10/325 1 TAB TABLET PO PRN (22:27)
[2020-07-08 05:38] VITALS: BP 136/74
[2020-07-08] MEDS: LISINOPRIL 20 MG TABLET PO SCH (08:15)
[2020-07-08] MEDS: POTASSIUM CHLORIDE 20 MEQ TABLET.ER. PO SCH ×2 (08:15→20:31)
[2020-07-08] MEDS: CLOPIDOGREL BISULFATE 75 MG TABLET PO SCH (08:15)
[2020-07-08] MEDS: amLODIPine BESYLATE 5 MG TABLET PO SCH (08:15)
[2020-07-08] MEDS: rOPINIRole 1 MG TABLET. PO SCH ×2 (08:16→12:32)
[2020-07-08] MEDS: METOPROLOL SUCC 24HR ER 50 MG TAB.ER.24H. PO SCH (08:16)
[2020-07-08] MEDS: MULTIVITAMIN with MINERAL TABLET. PO SCH (08:16)
[2020-07-08] MEDS: SERTRALINE 25 MG TABLET. PO SCH (08:16)
[2020-07-08] MEDS: VITAMIN E. 400 UNIT CAPSULE. PO SCH (08:16)
[2020-07-08] MEDS: PANTOPRAZOLE 40 MG TABLET. PO SCH (08:16)
[2020-07-08 08:23] LABS: BASO # 0.1 x10^3/uL (0.0-0.2); BASO % 1 % (0-3); EOS # 0.2 x10^3/uL (0.0-0.7); EOS % 2 % (0-3); HEMOGLOBIN 14.4 g/dL (12.0-15.5); LYMPH # 1.8 x10^3/uL (1.0-4.8); LYMPH % 26 % (24-48); MEAN CORPUSCULAR HEMOGLOBIN 29 pg (25-35); MEAN CORPUSCULAR HGB CONC 32 g/dL (31-37); MEAN CORPUSCULAR VOLUME 92 fL (79-100); MONO % 14 % (0-9); NEUT # 4.1 x10^3uL (1.8-7.7); NEUT % 57 % (31-73); PLATELET COUNT 263 x10^3/uL (140-400); RED CELL DISTRIBUTION WIDTH 15.1 % (11.5-14.5); WHITE BLOOD COUNT 7.1 x10^3/uL (4.0-11.0)
[2020-07-08 08:39] LABS: ALBUMIN 3.6 g/dL (3.4-5.0); CALCIUM 9.3 mg/dL (8.5-10.1); CREATININE 0.9 mg/dL (0.6-1.0); GFR 59.1; POTASSIUM 4.9 mmol/L (3.5-5.1); TOTAL BILIRUBIN 0.6 mg/dL (0.2-1.0); TOTAL PROTEIN 7.1 g/dL (6.4-8.2)
[2020-07-08 16:11] VITALS: BP 100/72
[2020-07-08] MEDS: MELATONIN 3 MG TABLET PO SCH (20:30)
[2020-07-08] MEDS: MIRTAZAPINE 7.5 MG TABLET. PO SCH (20:30)
[2020-07-08] MEDS: ATORVASTATIN CALCIUM 20 MG TABLET PO SCH (20:31)
[2020-07-08] MEDS: rOPINIRole 2 MG TABLET. PO SCH (20:32)
[2020-07-08] MEDS: risperiDONE 0.5 MG TABLET. PO SCH (20:32)
[2020-07-08] MEDS: traZODone 50 MG TABLET. PO PRN (20:34)
--- NOTE | 2020-07-08 20:48 | PDOC ---
Exam Note: Eriberto Note: This note is a late entry for 07/06/2020 covers elements not covered in my initial note. Subjective: The patient was reviewed on telehealth rounds in the evening of 07/06/2020 with Grace BELLA. Discussed with nursing staff, reviewed the chart. She slept 1-3/4 hours previous night. She was still actively psychotic, believed she was interacting and talking to someone who was not there but very pleasant, cooperative. Review of Systems: She is hard of hearing. No CV, , pulmonary, eye system symptoms on review. Mental Status Exam: Oriented to herself. She is quite pleasant, more anxious, restless. Speech has some latency, coherent, rapid at times. Abstraction is fair. Computation is impaired. Language function is intact. Attention span is short. Mood and affect anxious. Laboratory Data: Reviewed. 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 Anxiety disorder unspecified. Mild cognitive impairment. Psychotic disorder unspecified. Plan: We will increase Seroquel from 12.5 mg h.s. to 37.5 mg h.s. Use trazodone p.r.n. for insomnia. Adjust further as clinically indicated. Assessment: Vital Signs/I&O: Vital Signs Date Time Temp Pulse Resp B/P (MAP) Pulse Ox O2 Delivery O2 Flow Rate FiO2 07/08/20 16:11 98.2 101 20 100/72 (81) 98 07/07/20 15:00 Room Air I & O 07/07/20 07/07/20 07/08/20 14:59 22:59 06:59 Intake Total 720 ml 480 ml Balance 720 ml 480 ml Labs: Laboratory Tests Test 07/08/20 07:56 White Blood Count 7.1 x10^3/uL (4.0-11.0) Red Blood Count 4.90 x10^6/uL (3.50-5.40) Hemoglobin 14.4 g/dL (12.0-15.5) Hematocrit 45.0 % (36.0-47.0) Mean Corpuscular Volume 92 fL (79-100) Mean Corpuscular Hemoglobin 29 pg (25-35) Mean Corpuscular Hemoglobin Concent 32 g/dL (31-37) Red Cell Distribution Width 15.1 % (11.5-14.5) H Platelet Count 263 x10^3/uL (140-400) Neutrophils (%) (Auto) 57 % (31-73) Lymphocytes (%) (Auto) 26 % (24-48) Monocytes (%) (Auto) 14 % (0-9) H Eosinophils (%) (Auto) 2 % (0-3) Basophils (%) (Auto) 1 % (0-3) Neutrophils # (Auto) 4.1 x10^3uL (1.8-7.7) Lymphocytes # (Auto) 1.8 x10^3/uL (1.0-4.8) Monocytes # (Auto) 1.0 x10^3/uL (0.0-1.1) Eosinophils # (Auto) 0.2 x10^3/uL (0.0-0.7) Basophils # (Auto) 0.1 x10^3/uL (0.0-0.2) Sodium Level 144 mmol/L (136-145) Potassium Level 4.9 mmol/L (3.5-5.1) Chloride Level 108 mmol/L (98-107) H Carbon Dioxide Level 28 mmol/L (21-32) Anion Gap 8 (6-14) Blood Urea Nitrogen 21 mg/dL (7-20) H Creatinine 0.9 mg/dL (0.6-1.0) Estimated GFR (Cockcroft-Gault) 59.1 BUN/Creatinine Ratio 23 (6-20) H Glucose Level 106 mg/dL (70-99) H Calcium Level 9.3 mg/dL (8.5-10.1) Total Bilirubin 0.6 mg/dL (0.2-1.0) Aspartate Amino Transferase (AST) 22 U/L (15-37) Alanine Aminotransferase (ALT) 27 U/L (14-59) Alkaline Phosphatase 94 U/L (46-116) Total Protein 7.1 g/dL (6.4-8.2) Albumin 3.6 g/dL (3.4-5.0) Albumin/Globulin Ratio 1.0 (1.0-1.7) Current Medications: Meds: Current Medications Medications (Trade) Dose Ordered Sig/Tamanna Route PRN Reason Start Time Stop Time Status Last Admin Dose Admin Quetiapine Fumarate (SEROquel) 50 mg QHS PO 07/07/20 21:00 07/08/20 17:44 DC 07/07/20 21:26 Risperidone (RisperDAL) 0.5 mg HS PO 07/08/20 21:00 07/08/20 20:32 I have reviewed the current psychotropics carefully including drug interactions. Risk benefit ratio favors no change other than as noted in my dictated progress note. Diagnosis: Problems: (1) Mild cognitive impairment (2) Anxiety disorder, unspecified (3) Major depressive disorder, recurrent, severe with psychotic symptoms LAURA PEREZ MD Jul 08, 2020 20:48
--- NOTE | 2020-07-08 21:05 | PDOC ---
Exam Note: Eriberto Note: This note is a late entry for 07/07/2020 covers elements not covered in my initial note. Subjective: The patient was reviewed on telehealth rounds in the evening of 07/07/2020 with Patricia BELLA. Discussed with nursing staff, reviewed the chart. She slept 0 hours previous night. She has continued to have active hallucinations, restless, anxious. Review of Systems: She is hard of hearing. No CV, , pulmonary, eye system symptoms on review. Mental Status Exam: Oriented to herself. She is pleasant, cooperative, getting close to the video camera to communicate with me, very pleasant but still actively hallucinating talking about seeing her son amongst other things. Speech has some latency, coherent, rapid at times. Abstraction is fair. Computation is impaired. Language function is intact. Attention span is short. Mood and affect anxious. Laboratory Data: Reviewed. 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 Anxiety disorder unspecified. Mild cognitive impairment. Psychotic disorder unspecified. Plan: We will increase Seroquel from 37.5 mg h.s. to 50 mg h.s. and increase trazodone from 25 mg h.s. p.r.n. may repeat x1 insomnia to 50 mg h.s. p.r.n. Rest unchanged for now. Assessment: Vital Signs/I&O: Vital Signs Date Time Temp Pulse Resp B/P (MAP) Pulse Ox O2 Delivery O2 Flow Rate FiO2 07/08/20 16:11 98.2 101 20 100/72 (81) 98 07/07/20 15:00 Room Air I & O 07/07/20 07/07/20 07/08/20 14:59 22:59 06:59 Intake Total 720 ml 480 ml Balance 720 ml 480 ml Labs: Laboratory Tests Test 07/08/20 07:56 White Blood Count 7.1 x10^3/uL (4.0-11.0) Red Blood Count 4.90 x10^6/uL (3.50-5.40) Hemoglobin 14.4 g/dL (12.0-15.5) Hematocrit 45.0 % (36.0-47.0) Mean Corpuscular Volume 92 fL (79-100) Mean Corpuscular Hemoglobin 29 pg (25-35) Mean Corpuscular Hemoglobin Concent 32 g/dL (31-37) Red Cell Distribution Width 15.1 % (11.5-14.5) H Platelet Count 263 x10^3/uL (140-400) Neutrophils (%) (Auto) 57 % (31-73) Lymphocytes (%) (Auto) 26 % (24-48) Monocytes (%) (Auto) 14 % (0-9) H Eosinophils (%) (Auto) 2 % (0-3) Basophils (%) (Auto) 1 % (0-3) Neutrophils # (Auto) 4.1 x10^3uL (1.8-7.7) Lymphocytes # (Auto) 1.8 x10^3/uL (1.0-4.8) Monocytes # (Auto) 1.0 x10^3/uL (0.0-1.1) Eosinophils # (Auto) 0.2 x10^3/uL (0.0-0.7) Basophils # (Auto) 0.1 x10^3/uL (0.0-0.2) Sodium Level 144 mmol/L (136-145) Potassium Level 4.9 mmol/L (3.5-5.1) Chloride Level 108 mmol/L (98-107) H Carbon Dioxide Level 28 mmol/L (21-32) Anion Gap 8 (6-14) Blood Urea Nitrogen 21 mg/dL (7-20) H Creatinine 0.9 mg/dL (0.6-1.0) Estimated GFR (Cockcroft-Gault) 59.1 BUN/Creatinine Ratio 23 (6-20) H Glucose Level 106 mg/dL (70-99) H Calcium Level 9.3 mg/dL (8.5-10.1) Total Bilirubin 0.6 mg/dL (0.2-1.0) Aspartate Amino Transferase (AST) 22 U/L (15-37) Alanine Aminotransferase (ALT) 27 U/L (14-59) Alkaline Phosphatase 94 U/L (46-116) Total Protein 7.1 g/dL (6.4-8.2) Albumin 3.6 g/dL (3.4-5.0) Albumin/Globulin Ratio 1.0 (1.0-1.7) Current Medications: Meds: Current Medications Medications (Trade) Dose Ordered Sig/Tamanna Route PRN Reason Start Time Stop Time Status Last Admin Dose Admin Risperidone (RisperDAL) 0.5 mg HS PO 07/08/20 21:00 07/08/20 20:32 I have reviewed the current psychotropics carefully including drug interactions. Risk benefit ratio favors no change other than as noted in my dictated progress note. Diagnosis: Problems: (1) Mild cognitive impairment (2) Anxiety disorder, unspecified (3) Major depressive disorder, recurrent, severe with psychotic symptoms LAURA PEREZ MD Jul 08, 2020 21:05
--- NOTE | 2020-07-08 21:20 | PDOC ---
Exam Note: Eriberto Note: Please also refer to the separate dictated note~for this date of service dictated separately.~Patient seen individually. Discussed the patient with Nursing staff reviewed the chart.~Reviewed interim history and current functioning. Reviewed vital signs,~Labs/ Radiology~and current medications noted below. Continue current treatment with the changes noted in the dictated addendum note Assessment: Vital Signs/I&O: Vital Signs Date Time Temp Pulse Resp B/P (MAP) Pulse Ox O2 Delivery O2 Flow Rate FiO2 07/08/20 16:11 98.2 101 20 100/72 (81) 98 07/07/20 15:00 Room Air I & O 07/07/20 07/07/20 07/08/20 14:59 22:59 06:59 Intake Total 720 ml 480 ml Balance 720 ml 480 ml Labs: Laboratory Tests Test 07/08/20 07:56 White Blood Count 7.1 x10^3/uL (4.0-11.0) Red Blood Count 4.90 x10^6/uL (3.50-5.40) Hemoglobin 14.4 g/dL (12.0-15.5) Hematocrit 45.0 % (36.0-47.0) Mean Corpuscular Volume 92 fL (79-100) Mean Corpuscular Hemoglobin 29 pg (25-35) Mean Corpuscular Hemoglobin Concent 32 g/dL (31-37) Red Cell Distribution Width 15.1 % (11.5-14.5) H Platelet Count 263 x10^3/uL (140-400) Neutrophils (%) (Auto) 57 % (31-73) Lymphocytes (%) (Auto) 26 % (24-48) Monocytes (%) (Auto) 14 % (0-9) H Eosinophils (%) (Auto) 2 % (0-3) Basophils (%) (Auto) 1 % (0-3) Neutrophils # (Auto) 4.1 x10^3uL (1.8-7.7) Lymphocytes # (Auto) 1.8 x10^3/uL (1.0-4.8) Monocytes # (Auto) 1.0 x10^3/uL (0.0-1.1) Eosinophils # (Auto) 0.2 x10^3/uL (0.0-0.7) Basophils # (Auto) 0.1 x10^3/uL (0.0-0.2) Sodium Level 144 mmol/L (136-145) Potassium Level 4.9 mmol/L (3.5-5.1) Chloride Level 108 mmol/L (98-107) H Carbon Dioxide Level 28 mmol/L (21-32) Anion Gap 8 (6-14) Blood Urea Nitrogen 21 mg/dL (7-20) H Creatinine 0.9 mg/dL (0.6-1.0) Estimated GFR (Cockcroft-Gault) 59.1 BUN/Creatinine Ratio 23 (6-20) H Glucose Level 106 mg/dL (70-99) H Calcium Level 9.3 mg/dL (8.5-10.1) Total Bilirubin 0.6 mg/dL (0.2-1.0) Aspartate Amino Transferase (AST) 22 U/L (15-37) Alanine Aminotransferase (ALT) 27 U/L (14-59) Alkaline Phosphatase 94 U/L (46-116) Total Protein 7.1 g/dL (6.4-8.2) Albumin 3.6 g/dL (3.4-5.0) Albumin/Globulin Ratio 1.0 (1.0-1.7) Current Medications: Meds: Current Medications Medications (Trade) Dose Ordered Sig/Tamanna Route PRN Reason Start Time Stop Time Status Last Admin Dose Admin Risperidone (RisperDAL) 0.5 mg HS PO 07/08/20 21:00 07/08/20 20:32 I have reviewed the current psychotropics carefully including drug interactions. Risk benefit ratio favors no change other than as noted in my dictated progress note. Diagnosis: Problems: (1) Mild cognitive impairment (2) Anxiety disorder, unspecified (3) Major depressive disorder, recurrent, severe with psychotic symptoms LAURA PEREZ MD Jul 08, 2020 21:20
[2020-07-08] MEDS: HYDROcodone/APAP 10/325 1 TAB TABLET PO PRN (22:22)
[2020-07-09 02:50] VITALS: BP 147/83
[2020-07-09 06:00] VITALS: BP 127/83
[2020-07-09] MEDS: METOPROLOL SUCC 24HR ER 50 MG TAB.ER.24H. PO SCH (08:50)
[2020-07-09] MEDS: rOPINIRole 1 MG TABLET. PO SCH ×3 (08:51→19:43)
[2020-07-09] MEDS: amLODIPine BESYLATE 5 MG TABLET PO SCH (08:51)
[2020-07-09] MEDS: PANTOPRAZOLE 40 MG TABLET. PO SCH (08:51)
[2020-07-09] MEDS: POTASSIUM CHLORIDE 20 MEQ TABLET.ER. PO SCH ×2 (08:51→19:43)
[2020-07-09] MEDS: SERTRALINE 25 MG TABLET. PO SCH (08:51)
[2020-07-09] MEDS: LISINOPRIL 20 MG TABLET PO SCH (08:51)
[2020-07-09] MEDS: VITAMIN E. 400 UNIT CAPSULE. PO SCH (08:51)
[2020-07-09] MEDS: MULTIVITAMIN with MINERAL TABLET. PO SCH (08:51)
[2020-07-09] MEDS: CLOPIDOGREL BISULFATE 75 MG TABLET PO SCH (08:51)
[2020-07-09 15:54] VITALS: BP 142/90
[2020-07-09] MEDS: MELATONIN 3 MG TABLET PO SCH (19:41)
[2020-07-09] MEDS: risperiDONE 0.5 MG TABLET. PO SCH (19:41)
[2020-07-09] MEDS: MIRTAZAPINE 7.5 MG TABLET. PO SCH (19:41)
[2020-07-09] MEDS: GABAPENTIN 300 MG CAPSULE. PO SCH (19:43)
[2020-07-09] MEDS: traZODone 50 MG TABLET. PO PRN ×2 (19:43→23:14)
[2020-07-09] MEDS: ATORVASTATIN CALCIUM 20 MG TABLET PO SCH (19:44)
[2020-07-09] MEDS: ESTRADIOL 0.01% VAGINAL CREAM 42.5GM TUBE. VG SCH (20:32)
--- NOTE | 2020-07-09 20:40 | PDOC ---
Exam Note: Eriberto Note: Please also refer to the separate dictated note~for this date of service dictated separately.~Patient seen individually. Discussed the patient with Nursing staff reviewed the chart.~Reviewed interim history and current functioning. Reviewed vital signs,~Labs/ Radiology~and current medications noted below. Continue current treatment with the changes noted in the dictated addendum note Assessment: Vital Signs/I&O: Vital Signs Date Time Temp Pulse Resp B/P (MAP) Pulse Ox O2 Delivery O2 Flow Rate FiO2 07/09/20 15:54 98.3 99 18 142/90 (107) 95 07/07/20 15:00 Room Air I & O 07/08/20 07/08/20 07/09/20 15:00 23:00 07:00 Intake Total 480 ml 100 ml Balance 480 ml 100 ml Current Medications: Meds: Current Medications Medications (Trade) Dose Ordered Sig/Tamanna Route PRN Reason Start Time Stop Time Status Last Admin Dose Admin Risperidone (RisperDAL) 0.5 mg HS PO 07/08/20 21:00 07/09/20 19:41 Ropinirole HCl (Requip) 1 mg TID PO 07/09/20 21:00 07/09/20 19:43 Gabapentin (Neurontin) 300 mg QHS PO 07/09/20 21:00 07/09/20 19:43 I have reviewed the current psychotropics carefully including drug interactions. Risk benefit ratio favors no change other than as noted in my dictated progress note. Diagnosis: Problems: (1) Mild cognitive impairment (2) Anxiety disorder, unspecified (3) Major depressive disorder, recurrent, severe with psychotic symptoms LAURA PEREZ MD Jul 09, 2020 20:40
[2020-07-09] MEDS: HYDROcodone/APAP 10/325 1 TAB TABLET PO PRN (23:14)
[2020-07-09 23:21] VITALS: BP 125/73
[2020-07-10 06:28] VITALS: BP 131/81
--- NOTE | 2020-07-10 07:37 | PDOC ---
Exam Note: Eriberto Note: This note is a late entry for 07/08/2020 covers elements not covered in my initial note. Subjective: The patient was reviewed on telehealth rounds in the evening of 07/08/2020 with Arash BELLA. Discussed with Arash BELLA, reviewed the chart. She slept 4-1/4 hours previous night. The patient has been quite psychotic, actively hallucinating, making rather nasty comments to nursing staff members as part of her delusions. She refused to take her medications initially, dropped them on the floor, threw them and seemed to be reacting to active hallucinations. Review of Systems: She is hard of hearing. No CV, , pulmonary, eye system symptoms on review. Mental Status Exam: Oriented to herself. The patient was actively hallucinating as I met with her. She was talking to a lady who she felt was sitting across from her and there was no one there. She was quite distractible with some loose associations, quite psychotic overall. Speech has some latency, coherent, rapid at times. Abstraction is fair. Computation is impaired. Language function is intact. Attention span is short. Mood and affect anxious. No suicidal or homicidal ideation. Laboratory Data: Reviewed. 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 Anxiety disorder unspecified. Mild cognitive impairment. Psychotic disorder u nspecified. Plan: I have had few of her psychotropics and considered drug interactions and risk-benefit ratio. She remains psychotic despite Seroquel 50 mg h.s. We will change this to Risperdal 0.5 mg h.s. Maintain melatonin, Zoloft, trazodone, Remeron for now along with Zyprexa p.r.n. We may need to increase Risperdal in due course. She is not aggressive but extremely psychotic. Assessment: Vital Signs/I&O: Vital Signs Date Time Temp Pulse Resp B/P (MAP) Pulse Ox O2 Delivery O2 Flow Rate FiO2 07/10/20 06:28 97.1 98 20 131/81 (98) 91 07/07/20 15:00 Room Air I & O 07/09/20 07/09/20 07/10/20 15:00 23:00 07:00 Intake Total 720 ml 120 ml Balance 720 ml 120 ml Current Medications: Meds: Current Medications Medications (Trade) Dose Ordered Sig/Tamanna Route PRN Reason Start Time Stop Time Status Last Admin Dose Admin Ropinirole HCl (Requip) 1 mg TID PO 07/09/20 21:00 07/09/20 19:43 Gabapentin (Neurontin) 300 mg QHS PO 07/09/20 21:00 07/09/20 19:43 I have reviewed the current psychotropics carefully including drug interactions. Risk benefit ratio favors no change other than as noted in my dictated progress note. Diagnosis: Problems: (1) Mild cognitive impairment (2) Anxiety disorder, unspecified (3) Major depressive disorder, recurrent, severe with psychotic symptoms LAURA PEREZ MD Jul 10, 2020 07:37
--- NOTE | 2020-07-10 07:54 | PDOC ---
Exam Note: Eriberto Note: This note is a late entry for 07/09/2020 covers elements not covered in my initial note. Subjective: The patient was seen face to face in the evening of 07/09/2020 with Grace BELLA. Discussed with nursing staff, reviewed the chart. She slept 0.5 hours previous night. The patient has been continued to actively hallucinate. She is talking to someone in her room and no one was there. She is anxious, restless. She did receive trazodone, Lortab, Zyprexa Zydis previous night but still did not sleep well. She is wandering the hallways. Some of her psychotic symptoms have worsened significantly since ReQuip was increased to 4 mg a day, 1 mg b.i.d., 2 mg h.s for restless legs. We will go ahead and drop it back to 3 mg a day, and start gabapentin 300 mg h.s. for her restless leg symptoms and hopefully some of the psychotic symptoms, behavioral dyscontrol should improve. Review of Systems: No CV, , pulmonary, eye system symptoms on review. Mental Status Exam: Oriented to herself. She is quite verbal, interactive, actively hallucinating, psychotic, distractible, anxious, otherwise pleasant, smiling. Speech has some latency, coherent, rapid at times. Abstraction is fair. Computation is impaired. Language function is intact. Attention span is short. Mood and affect anxious. No suicidal or homicidal ideation. Laboratory Data: Reviewed. 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 Restless leg syndrome. Plan: We will start gabapentin 300 mg h.s. for her restless leg symptoms and hopefully some of the psychotic symptoms, behavioral dyscontrol should improve. Continue rest unchanged. Assessment: Vital Signs/I&O: Vital Signs Date Time Temp Pulse Resp B/P (MAP) Pulse Ox O2 Delivery O2 Flow Rate FiO2 07/10/20 06:28 97.1 98 20 131/81 (98) 91 07/07/20 15:00 Room Air I & O 07/09/20 07/09/20 07/10/20 15:00 23:00 07:00 Intake Total 720 ml 120 ml Balance 720 ml 120 ml Current Medications: Meds: Current Medications Medications (Trade) Dose Ordered Sig/Tamanna Route PRN Reason Start Time Stop Time Status Last Admin Dose Admin Ropinirole HCl (Requip) 1 mg TID PO 07/09/20 21:00 07/09/20 19:43 Gabapentin (Neurontin) 300 mg QHS PO 07/09/20 21:00 07/09/20 19:43 I have reviewed the current psychotropics carefully including drug interactions. Risk benefit ratio favors no change other than as noted in my dictated progress note. Diagnosis: Problems: (1) Mild cognitive impairment (2) Anxiety disorder, unspecified (3) Major depressive disorder, recurrent, severe with psychotic symptoms LAURA PEREZ MD Jul 10, 2020 07:54
[2020-07-10] MEDS: CLOPIDOGREL BISULFATE 75 MG TABLET PO SCH (11:36)
[2020-07-10] MEDS: LISINOPRIL 20 MG TABLET PO SCH (11:37)
[2020-07-10] MEDS: MULTIVITAMIN with MINERAL TABLET. PO SCH (11:37)
[2020-07-10] MEDS: POTASSIUM CHLORIDE 20 MEQ TABLET.ER. PO SCH ×2 (11:37→21:00)
[2020-07-10] MEDS: amLODIPine BESYLATE 5 MG TABLET PO SCH (11:37)
[2020-07-10] MEDS: rOPINIRole 1 MG TABLET. PO SCH ×3 (11:38→21:00)
[2020-07-10] MEDS: METOPROLOL SUCC 24HR ER 50 MG TAB.ER.24H. PO SCH (11:38)
[2020-07-10] MEDS: PANTOPRAZOLE 40 MG TABLET. PO SCH (11:38)
[2020-07-10] MEDS: VITAMIN E. 400 UNIT CAPSULE. PO SCH (11:38)
[2020-07-10] MEDS: ACETAMINOPHEN 325 MG TABLET PO PRN (11:38)
[2020-07-10] MEDS: SERTRALINE 25 MG TABLET. PO SCH (11:38)
[2020-07-10] MEDS: HYDROcodone/APAP 10/325 1 TAB TABLET PO PRN (17:50)
--- NOTE | 2020-07-10 20:55 | PDOC ---
Exam Note: Eriberto Note: Please also refer to the separate dictated note~for this date of service dictated separately.~Patient seen individually. Discussed the patient with Nursing staff reviewed the chart.~Reviewed interim history and current functioning. Reviewed vital signs,~Labs/ Radiology~and current medications noted below. Continue current treatment with the changes noted in the dictated addendum note Assessment: Vital Signs/I&O: Vital Signs Date Time Temp Pulse Resp B/P (MAP) Pulse Ox O2 Delivery O2 Flow Rate FiO2 07/10/20 19:57 91 07/10/20 17:50 16 Room Air 07/10/20 11:38 98 131/81 07/10/20 06:28 97.1 I & O 07/09/20 07/09/20 07/10/20 15:00 23:00 07:00 Intake Total 720 ml 120 ml Balance 720 ml 120 ml Current Medications: Meds: Current Medications Medications (Trade) Dose Ordered Sig/Tamanna Route PRN Reason Start Time Stop Time Status Last Admin Dose Admin Ropinirole HCl (Requip) 1 mg TID PO 07/09/20 21:00 07/10/20 11:38 Gabapentin (Neurontin) 300 mg QHS PO 07/09/20 21:00 07/09/20 19:43 I have reviewed the current psychotropics carefully including drug interactions. Risk benefit ratio favors no change other than as noted in my dictated progress note. Diagnosis: Problems: (1) Mild cognitive impairment (2) Anxiety disorder, unspecified (3) Major depressive disorder, recurrent, severe with psychotic symptoms LAURA PEREZ MD Jul 10, 2020 20:55
[2020-07-10] MEDS: MELATONIN 3 MG TABLET PO SCH (21:00)
[2020-07-10] MEDS: GABAPENTIN 300 MG CAPSULE. PO SCH (21:00)
[2020-07-10] MEDS: risperiDONE 0.5 MG TABLET. PO SCH (21:00)
[2020-07-10] MEDS: ATORVASTATIN CALCIUM 20 MG TABLET PO SCH (21:00)
[2020-07-10] MEDS: MIRTAZAPINE 7.5 MG TABLET. PO SCH (21:00)
[2020-07-10 21:10] VITALS: BP 127/71
[2020-07-11] MEDS: ATORVASTATIN CALCIUM 20 MG TABLET PO SCH ×2 (01:50→19:28)
[2020-07-11] MEDS: MELATONIN 3 MG TABLET PO SCH ×2 (01:50→19:29)
[2020-07-11] MEDS: rOPINIRole 1 MG TABLET. PO SCH ×4 (01:50→19:28)
[2020-07-11] MEDS: GABAPENTIN 300 MG CAPSULE. PO SCH ×2 (01:50→19:28)
[2020-07-11] MEDS: POTASSIUM CHLORIDE 20 MEQ TABLET.ER. PO SCH ×3 (01:50→19:28)
[2020-07-11] MEDS: risperiDONE 0.5 MG TABLET. PO SCH ×2 (01:50→19:28)
[2020-07-11] MEDS: MIRTAZAPINE 7.5 MG TABLET. PO SCH ×2 (01:50→19:28)
[2020-07-11] MEDS: HYDROcodone/APAP 10/325 1 TAB TABLET PO PRN ×2 (01:52→17:20)
[2020-07-11] MEDS: traZODone 50 MG TABLET. PO PRN ×2 (01:52→23:38)
[2020-07-11 06:29] VITALS: BP 112/74
[2020-07-11] MEDS: MULTIVITAMIN with MINERAL TABLET. PO SCH (13:51)
[2020-07-11] MEDS: METOPROLOL SUCC 24HR ER 50 MG TAB.ER.24H. PO SCH (13:51)
[2020-07-11] MEDS: CLOPIDOGREL BISULFATE 75 MG TABLET PO SCH (13:51)
[2020-07-11] MEDS: SERTRALINE 25 MG TABLET. PO SCH (13:52)
[2020-07-11] MEDS: LISINOPRIL 20 MG TABLET PO SCH (13:52)
[2020-07-11] MEDS: amLODIPine BESYLATE 5 MG TABLET PO SCH (13:52)
[2020-07-11] MEDS: PANTOPRAZOLE 40 MG TABLET. PO SCH (13:53)
[2020-07-11] MEDS: VITAMIN E. 400 UNIT CAPSULE. PO SCH (13:54)
[2020-07-11 15:17] VITALS: BP 103/74
--- NOTE | 2020-07-11 20:53 | PDOC ---
Exam Note: Eriberto Note: Please also refer to the separate dictated note~for this date of service dictated separately.~Patient seen individually. Discussed the patient with Nursing staff reviewed the chart.~Reviewed interim history and current functioning. Reviewed vital signs,~Labs/ Radiology~and current medications noted below. Continue current treatment with the changes noted in the dictated addendum note Assessment: Vital Signs/I&O: Vital Signs Date Time Temp Pulse Resp B/P (MAP) Pulse Ox O2 Delivery O2 Flow Rate FiO2 07/11/20 18: 98 07/11/20 15:17 98.0 109 20 103/74 (84) Room Air I & O 07/10/20 07/10/20 07/11/20 15:00 23:00 07:00 Intake Total 360 ml 240 ml Balance 360 ml 240 ml Current Medications: Meds: Current Medications Medications (Trade) Dose Ordered Sig/Tamanna Route PRN Reason Start Time Stop Time Status Last Admin Dose Admin Ropinirole HCl (Requip) 1 mg 1400,2100 PO 07/11/20 21:00 07/11/20 19:28 I have reviewed the current psychotropics carefully including drug interactions. Risk benefit ratio favors no change other than as noted in my dictated progress note. Diagnosis: Problems: (1) Mild cognitive impairment (2) Anxiety disorder, unspecified (3) Major depressive disorder, recurrent, severe with psychotic symptoms LAURA PEREZ MD Jul 11, 2020 20:53
[2020-07-11] MEDS: ESTRADIOL 0.01% VAGINAL CREAM 42.5GM TUBE. VG SCH (22:08)
[2020-07-12] MEDS: HYDROcodone/APAP 10/325 1 TAB TABLET PO PRN ×2 (01:42→14:57)
[2020-07-12 04:25] VITALS: BP 93/65
--- NOTE | 2020-07-12 07:44 | PDOC ---
Exam Note: Eriberto Note: This note is a late entry for 07/10/2020 covers elements not covered in my initial note. Subjective: The patient was seen face to face in the evening of 07/10/2020 with Grace BELLA. Discussed with nursing staff, reviewed the chart. She slept 4- 3/4hours previous night. The patient had a fall previous evening. She was actively hallucinating, unsteady in her gait and fell. She has been on one-on-one status since then per Dr. Vicente. She has complained of sore throat but there is no fever and no specific cough. She remains quite disorganized, paranoid, still intermittent hallucinations are evident. Review of Systems: She is hard of hearing. No CV, , pulmonary, eye system symptoms on review. Mental Status Exam: Oriented to herself. The patient was seen individually in her room. She is quite hard of hearing, distractible, still psychotic, talking to someone in the room and no one was there. This is despite reduction in the ReQuip down to 3 mg a day and we have added Neurontin for her restless legs to compensate. Speech is coherent. Abstraction is fair. Computation is impaired. Language function is intact. Attention span is short. No active suicidal or homicidal ideation. Laboratory Data: Reviewed. 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 Restless leg syndrome. Plan: Continue current psychotropics and one-on-one status. We may need to increase Risperdal but we will see how she does initially with the reduced ReQuip that was initiated within the last 24 hours. I have carefully reviewed the risk-benefit ratio and drug interactions. Assessment: Vital Signs/I&O: Vital Signs Date Time Temp Pulse Resp B/P (MAP) Pulse Ox O2 Delivery O2 Flow Rate FiO2 07/12/20 04:25 97.2 78 16 93/65 (74) 95 Room Air I & O 07/11/20 07/11/20 07/12/20 15:00 23:00 07:00 Intake Total 480 ml 360 ml Balance 480 ml 360 ml Current Medications: Meds: Current Medications Medications (Trade) Dose Ordered Sig/Tamanna Route PRN Reason Start Time Stop Time Status Last Admin Dose Admin Ropinirole HCl (Requip) 1 mg 1400,2100 PO 07/11/20 21:00 07/11/20 19:28 I have reviewed the current psychotropics carefully including drug interactions. Risk benefit ratio favors no change other than as noted in my dictated progress note. Diagnosis: Problems: (1) Mild cognitive impairment (2) Anxiety disorder, unspecified (3) Major depressive disorder, recurrent, severe with psychotic symptoms LAURA PEREZ MD Jul 12, 2020 07:44
--- NOTE | 2020-07-12 08:05 | PDOC ---
Exam Note: Eriberto Note: This note is a late entry for 07/11/2020 covers elements not covered in my initial note. Subjective: The patient was seen face to face in the evening of 07/11/2020 with Grace BELLA. Discussed with nursing staff, reviewed the chart. She slept 9-1/4 hours previous night. The patient slept reasonably previous night and has been sleeping off and on during the day. She has been irritable, actively hallucinating, remains on one-on-one status. She has been in the Quiet Room and staff are interacting with her. She was turning to the side talking to her son Kayden who she thought was there. Ever since the ReQuip was increased for restless legs, the patients psychotic symptoms have worsened dramatically and we are going to reduce the ReQuip down to 1 mg twice a day. Review of Systems: She is hard of hearing. No CV, , pulmonary, eye system symptoms on review. Mental Status Exam: Oriented to herself and situation. Speech is coherent. A bstraction is fair. Computation is impaired. Language function is intact. Attention span is short. Mood and affect remains labile. No active suicidal or homicidal ideation. Laboratory Data: Reviewed. 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 Restless leg syndrome. Plan: Reduce the ReQuip as noted. We may need to increase Risperdal in due course. Rest unchanged for now. Assessment: Vital Signs/I&O: Vital Signs Date Time Temp Pulse Resp B/P (MAP) Pulse Ox O2 Delivery O2 Flow Rate FiO2 07/12/20 04:25 97.2 78 16 93/65 (74) 95 Room Air I & O 07/11/20 07/11/20 07/12/20 15:00 23:00 07:00 Intake Total 480 ml 360 ml Balance 480 ml 360 ml Current Medications: Meds: Current Medications Medications (Trade) Dose Ordered Sig/Tamanna Route PRN Reason Start Time Stop Time Status Last Admin Dose Admin Ropinirole HCl (Requip) 1 mg 1400,2100 PO 07/11/20 21:00 07/11/20 19:28 I have reviewed the current psychotropics carefully including drug interactions. Risk benefit ratio favors no change other than as noted in my dictated progress note. Diagnosis: Problems: (1) Mild cognitive impairment (2) Anxiety disorder, unspecified (3) Major depressive disorder, recurrent, severe with psychotic symptoms LAURA PEREZ MD Jul 12, 2020 08:05
[2020-07-12] MEDS: MULTIVITAMIN with MINERAL TABLET. PO SCH (09:24)
[2020-07-12] MEDS: METOPROLOL SUCC 24HR ER 50 MG TAB.ER.24H. PO SCH (09:25)
[2020-07-12] MEDS: SERTRALINE 25 MG TABLET. PO SCH (09:25)
[2020-07-12] MEDS: VITAMIN E. 400 UNIT CAPSULE. PO SCH (09:25)
[2020-07-12] MEDS: PANTOPRAZOLE 40 MG TABLET. PO SCH (09:25)
[2020-07-12] MEDS: LISINOPRIL 20 MG TABLET PO SCH (09:25)
[2020-07-12] MEDS: CLOPIDOGREL BISULFATE 75 MG TABLET PO SCH (09:25)
[2020-07-12] MEDS: POTASSIUM CHLORIDE 20 MEQ TABLET.ER. PO SCH ×2 (09:26→20:23)
[2020-07-12] MEDS: amLODIPine BESYLATE 5 MG TABLET PO SCH (09:26)
--- NOTE | 2020-07-12 12:11 | TX PLAN ---
Interdisciplinary Tx Plan Admission Information Jun 27, 2020 at 15:25 Legal Status (on Admission): Voluntary DPOA/Guardian Name: Félix Cheema Contact Other Contact Name: Gemma Arroyo Amy Other Contact Verified Code Status: DNR Allergies: Coded Allergies: NSAIDS (Non-Steroidal Anti-Inflamma (Verified Allergy, Severe, anaphylaxis, 06/28/20) Sulfa (Sulfonamide Antibiotics) (Verified Allergy, Unknown, 06/26/20) doxycycline (Verified Allergy, Unknown, 06/26/20) lansoprazole (Verified Allergy, Unknown, 06/26/20) oseltamivir (Verified Allergy, Unknown, 06/26/20) paroxetine (Verified Allergy, Unknown, 06/26/20) ranitidine (Verified Allergy, Unknown, 06/26/20) Diagnoses Primary Diagnosis: Major depressive disorder, recurrent with psychotic features, mild cognitive impairment; anxiety disorder, unspecified. Reasons for Admission: Delusions, Agitated, Depressed, Sig. Change Appetite, Sig. Change Sleep, Anxiety/Panic, Hallucinations Problem in Patient's Words: Per pt, "I've been having lots of trouble with temper, which is unusual for me. It is not my personality. I've made people mad. I have restless legs and that is terrible. 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 You can look at me wrong and I'll start crying. I've taken hydrocodone for years and would like to get off of it. A doctor put me on it a long time ago and my current doctor said that he would agree to take one pill away a month from me." Additional Admission Comments: Per intake record, agitated, anxious, depressed, poor appetite, insominia,thinks others are talking about her, voices from TV are telling her what to do, sees women outside her window with chainsaws, feels like no one cares for her and wants to kick her out. Problems Active Problems: A/V Hallucinations of seeing dogs and hearing music. Delusions of thinking that others talk about her. Inactive Problems: None Pt Strengths/Limitations Ability for [place]: Fair Cognitive Functioning/Ability: Fair Communication Skills/Ability: Good Financial Resources: Good Insight/Judgement: Fair Intellectual Ability: Fair Physical Health: Poor Social Skills: Poor Stability in Family: Good Stability in School/Work: Good Verbal Skills: Good Discharge Criteria Discharge Criteria: OP monitor medical prob, Adequate arrangements @DC, Adequate self-care, Verbal commit med comply, Improved behavior, Improved mood/thought Preliminary Discharge Plan Preliminary DC Plan: Assisted Living Special Precautions Special Precautions: Agitation/Assault Fall Risk: Moderate Other Precautions (specify): Pt uses a walker Initial D/C Plan Pt plan is to return to [facility]. Follow up with PCP. Psychiatrist to follow if available through facility. Currently Utilized Resources Currently Utilized Resources/P: PCP is Dr. Herb Guerra [phone] DPOA is son Félix Cheema [phone] Living facility is [facility]- contact is Gemma Arroyo or Amy (P) [phone] (F)[phone] Referrals Community Resources: None noted at this time. Identified Problems/Hx/Goals Objectives/Short-Term Goals Short Term Goals: Dec. Anxiety/Panic, Dec. Hallucination/Delus, Dec. Symp. 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 Education: Pt reports that she attended high school through her [place] year; not completing high school so that she could get and start a family. 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 Last evening she got 4 3/4 hours of sleep. Over the past few days pt had been actively hallucinating much more than before. This was r/t increase in medication and most likely lack of sleep. She had a couple of falls and was place 1:1 for safety precautions. It appears thus far today that pt is more alert and coherent as the medication has been readjusted. She seems to be in better spirits and is showing less confusion this day. Pt has been observed holding her drinking cup with both hands which is probably r/t muscle weakness. When alert, pt still reports leg pain. She continues to be on 1:1 status until s afety concerns have subsided. Medication will remain as written for today and will continue to be monitored and readjusted as needed. RANDY CARVALHO Jul 12, 2020 12:11
[2020-07-12] MEDS: rOPINIRole 1 MG TABLET. PO SCH ×2 (14:05→20:22)
[2020-07-12 16:07] VITALS: BP 114/69
[2020-07-12] MEDS: MELATONIN 3 MG TABLET PO SCH (20:23)
[2020-07-12] MEDS: ATORVASTATIN CALCIUM 20 MG TABLET PO SCH (20:23)
[2020-07-12] MEDS: GABAPENTIN 300 MG CAPSULE. PO SCH (20:23)
[2020-07-12] MEDS: MIRTAZAPINE 7.5 MG TABLET. PO SCH (20:23)
[2020-07-12] MEDS: risperiDONE 0.5 MG TABLET. PO SCH (20:24)
--- NOTE | 2020-07-12 20:49 | PDOC ---
Exam Note: Eirberto Note: Please also refer to the separate dictated note~for this date of service dictated separately.~Patient seen individually. Discussed the patient with Nursing staff reviewed the chart.~Reviewed interim history and current functioning. Reviewed vital signs,~Labs/ Radiology~and current medications noted below. Continue current treatment with the changes noted in the dictated addendum note Assessment: Vital Signs/I&O: Vital Signs Date Time Temp Pulse Resp B/P (MAP) Pulse Ox O2 Delivery O2 Flow Rate FiO2 07/12/20 16:15 16 96 Room Air 07/12/20 16:07 97.8 93 114/69 (84) I & O 07/11/20 07/11/20 07/12/20 15:00 23:00 07:00 Intake Total 480 ml 360 ml Balance 480 ml 360 ml Current Medications: Meds: Current Medications Medications (Trade) Dose Ordered Sig/Tamanna Route PRN Reason Start Time Stop Time Status Last Admin Dose Admin Ropinirole HCl (Requip) 1 mg 1400,2100 PO 07/11/20 21:00 07/12/20 20:22 I have reviewed the current psychotropics carefully including drug interactions. Risk benefit ratio favors no change other than as noted in my dictated progress note. Diagnosis: Problems: (1) Mild cognitive impairment (2) Anxiety disorder, unspecified (3) Major depressive disorder, recurrent, severe with psychotic symptoms LAURA PEREZ MD Jul 12, 2020 20:49
[2020-07-12] MEDS: traZODone 50 MG TABLET. PO PRN (23:24)
[2020-07-13] MEDS: traZODone 50 MG TABLET. PO PRN ×3 (00:44→21:40)
[2020-07-13] MEDS: HYDROcodone/APAP 10/325 1 TAB TABLET PO PRN ×3 (01:35→22:54)
[2020-07-13 05:28] VITALS: BP 157/89
[2020-07-13 05:42] LABS: BILIRUBIN,URINE NEG (NEG); CLARITY,URINE CLOUDY; COLOR,URINE COLORLESS; GLUCOSE,URINE NEG (NEG)
[2020-07-13 05:43] LABS: BACTERIA,URINE FEW /HPF (0-FEW); NITRITE,URINE NEG (NEG); RBC,URINE 0 /HPF (0-2); SQUAMOUS EPITHELIAL CELL,UR MANY /LPF; UROBILINOGEN,URINE 0.2 mg/dL (0.2 mg/dL)
[2020-07-13] MEDS: VITAMIN E. 400 UNIT CAPSULE. PO SCH (08:54)
[2020-07-13] MEDS: MULTIVITAMIN with MINERAL TABLET. PO SCH (08:54)
[2020-07-13] MEDS: LISINOPRIL 20 MG TABLET PO SCH (08:54)
[2020-07-13] MEDS: CLOPIDOGREL BISULFATE 75 MG TABLET PO SCH (08:54)
[2020-07-13] MEDS: POTASSIUM CHLORIDE 20 MEQ TABLET.ER. PO SCH ×2 (08:54→19:58)
[2020-07-13] MEDS: amLODIPine BESYLATE 5 MG TABLET PO SCH (08:55)
[2020-07-13] MEDS: PANTOPRAZOLE 40 MG TABLET. PO SCH (08:55)
[2020-07-13] MEDS: METOPROLOL SUCC 24HR ER 50 MG TAB.ER.24H. PO SCH (08:55)
[2020-07-13] MEDS: SERTRALINE 25 MG TABLET. PO SCH (08:55)
[2020-07-13] MEDS: rOPINIRole 1 MG TABLET. PO SCH ×2 (14:27→19:58)
[2020-07-13 15:00] VITALS: BP 103/71
[2020-07-13] MEDS: GABAPENTIN 300 MG CAPSULE. PO SCH (19:58)
[2020-07-13] MEDS: MIRTAZAPINE 7.5 MG TABLET. PO SCH (19:58)
[2020-07-13] MEDS: risperiDONE 0.5 MG TABLET. PO SCH (19:58)
[2020-07-13] MEDS: MELATONIN 3 MG TABLET PO SCH (19:59)
[2020-07-13] MEDS: ATORVASTATIN CALCIUM 20 MG TABLET PO SCH (19:59)
--- NOTE | 2020-07-13 20:58 | PDOC ---
Exam Note: Eriberto Note: Please also refer to the separate dictated note~for this date of service dictated separately.~Patient seen individually. Discussed the patient with Nursing staff reviewed the chart.~Reviewed interim history and current functioning. Reviewed vital signs,~Labs/ Radiology~and current medications noted below. Continue current treatment with the changes noted in the dictated addendum note Assessment: Vital Signs/I&O: Vital Signs Date Time Temp Pulse Resp B/P (MAP) Pulse Ox O2 Delivery O2 Flow Rate FiO2 07/13/20 15:00 97.4 89 20 103/71 (82) 95 Nasal Cannula I & O 07/12/20 07/12/20 07/13/20 15:00 23:00 07:00 Intake Total 830 ml Balance 830 ml Labs: Laboratory Tests Test 07/13/20 01:59 Urine Collection Type Unknown Urine Color Colorless Urine Clarity Cloudy Urine pH 5.5 Urine Specific [place] <=1.005 Urine Protein Neg (NEG-TRACE) Urine Glucose (UA) Neg mg/dL (NEG) Urine Ketones (Stick) Neg mg/dL (NEG) Urine Blood Neg (NEG) Urine Nitrite Neg (NEG) Urine Bilirubin Neg (NEG) Urine Urobilinogen Dipstick 0.2 mg/dL (0.2 mg/dL) Urine Leukocyte Esterase Trace (NEG) Urine RBC 0 /HPF (0-2) Urine WBC 1-4 /HPF (0-4) Urine Squamous Epithelial Cells Many /LPF Urine Bacteria Few /HPF (0-FEW) Current Medications: I have reviewed the current psychotropics carefully including drug interactions. Risk benefit ratio favors no change other than as noted in my dictated progress note. Diagnosis: Problems: (1) Mild cognitive impairment (2) Anxiety disorder, unspecified (3) Major depressive disorder, recurrent, severe with psychotic symptoms LAURA PEREZ MD Jul 13, 2020 20:58
[2020-07-13] MEDS: ESTRADIOL 0.01% VAGINAL CREAM 42.5GM TUBE. VG SCH (21:38)
[2020-07-14 06:26] VITALS: BP 135/85
--- NOTE | 2020-07-14 06:53 | PDOC ---
Exam Note: Eriberto Note: This note is a late entry for 07/12/2020 covers elements not covered in my initial note. Subjective: The patient was seen face to face in the morning of 07/12/2020 for treatment team meeting with Meghan Mortensen and Loyda (social service liaison staff), Ariela, Activity Therapy and Herb BELLA. Discussed with nursing staff, reviewed the chart. She slept 4-3/4 hours previous night. Appetite is about 50%. She has been on one-on-one status but we will assess and discontinue this depending on how she does during the day. In fact at the end of the day we stop the one-on-one status. The patient remains intermittently psychotic, hallucinating, talking to people around her when there was no one there. Nursing report with Herb BELLA. Review of Systems: She is hard of hearing. No CV, , pulmonary, eye system symptoms on review. Mental Status Exam: Oriented to herself and situation. The patient remains extremely anxious, restless, distractible with hallucinations as noted above. When questioned she said she was at [facility] but knew the year was 2019. Speech is coherent. Abstraction is fair. Computation is impaired. Language function is intact. Attention span is short. Mood and affect remains labile. No active suicidal or homicidal ideation. Laboratory Data: Reviewed. 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 Restless leg syndrome. Plan: We will stop the one-on-one status after evaluation at the end of the day. UA has reflex to culture. We will await results and treat as clinically indicated. Continue rest of the psychotropics unchanged. We have reduced the ReQuip. We will reduce it further. Use gabapentin for restless leg since ReQuip could be worsening her psychotic symptoms. Maintain Risperdal 0.5 mg h.s., Zoloft 25 mg a day, melatonin 4.5 mg h.s., Zyprexa p.r.n., Remeron 7.5 mg h.s. Assessment: Vital Signs/I&O: Vital Signs Date Time Temp Pulse Resp B/P (MAP) Pulse Ox O2 Delivery O2 Flow Rate FiO2 07/14/20 06:26 98.0 91 18 135/85 (102) 95 Room Air I & O 1107/13/20 07/14/20 15:00 23:00 07:00 Intake Total 600 ml 240 ml Output Total 1 ml Balance 599 ml 240 ml Current Medications: I have reviewed the current psychotropics carefully including drug interactions. Risk benefit ratio favors no change other than as noted in my dictated progress note. Diagnosis: Problems: (1) Mild cognitive impairment (2) Anxiety disorder, unspecified (3) Major depressive disorder, recurrent, severe with psychotic symptoms LAURA PEREZ MD Jul 14, 2020 06:53
--- NOTE | 2020-07-14 07:17 | PDOC ---
Exam Note: Eriberto Note: This note is a late entry for 07/13/2020 covers elements not covered in my initial note. Subjective: The patient was seen on telehealth rounds in the evening of 07/13/2020 with Rena BELLA. Discussed with nursing staff, reviewed the chart. She slept 3-1/4 hours previous night. She received Zyprexa, trazodone previous night to help her sleep. She had no hallucinations during the morning but later in the evening, she was somewhat delusional, suspicious, anxious. Her right hand is somewhat weak. We will consult Dr. Mcconnell, Neurology. for culture is awaited. During the telehealth rounds she put her ear to the phone and was able to communicate somewhat, little irritable, distractible. Review of Systems: She is hard of hearing. No CV, , pulmonary, eye system symptoms on review. Mental Status Exam: Oriented to herself and situation. Speech is coherent. Abstraction is fair. Computation is impaired. Language function is intact. A ttention span is short. Mood and affect remains labile. No active suicidal or homicidal ideation. Laboratory Data: Reviewed. 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 Restless leg syndrome. Plan: Once the UA with C&S returns, we will treat the UA as appropriate. Consider increasing Risperdal if psychotic symptoms persist. Assessment: Vital Signs/I&O: Vital Signs Date Time Temp Pulse Resp B/P (MAP) Pulse Ox O2 Delivery O2 Flow Rate FiO2 07/14/20 06:26 98.0 91 18 135/85 (102) 95 Room Air I & O 07/13/20 07/13/20 07/14/20 14:59 22:59 06:59 Intake Total 600 ml 240 ml Output Total 1 ml Balance 599 ml 240 ml Current Medications: I have reviewed the current psychotropics carefully including drug interactions. Risk benefit ratio favors no change other than as noted in my dictated progress note. Diagnosis: Problems: (1) Mild cognitive impairment (2) Anxiety disorder, unspecified (3) Major depressive disorder, recurrent, severe with psychotic symptoms LAURA PEREZ MD Jul 14, 2020 07:16
[2020-07-14] MEDS: POTASSIUM CHLORIDE 20 MEQ TABLET.ER. PO SCH ×2 (09:10→20:10)
[2020-07-14] MEDS: CLOPIDOGREL BISULFATE 75 MG TABLET PO SCH (09:11)
[2020-07-14] MEDS: amLODIPine BESYLATE 5 MG TABLET PO SCH (09:11)
[2020-07-14] MEDS: LISINOPRIL 20 MG TABLET PO SCH (09:11)
[2020-07-14] MEDS: VITAMIN E. 400 UNIT CAPSULE. PO SCH (09:12)
[2020-07-14] MEDS: PANTOPRAZOLE 40 MG TABLET. PO SCH (09:12)
[2020-07-14] MEDS: SERTRALINE 25 MG TABLET. PO SCH (09:12)
[2020-07-14] MEDS: METOPROLOL SUCC 24HR ER 50 MG TAB.ER.24H. PO SCH (09:12)
[2020-07-14] MEDS: MULTIVITAMIN with MINERAL TABLET. PO SCH (09:12)
[2020-07-14] MEDS: HYDROcodone/APAP 10/325 1 TAB TABLET PO PRN ×2 (09:17→22:06)
[2020-07-14 12:07] LABS: BASO % 0 % (0-3); EOS # 0.2 x10^3/uL (0.0-0.7); EOS % 1 % (0-3); HEMATOCRIT 43.5 % (36.0-47.0); LYMPH # 1.5 x10^3/uL (1.0-4.8); LYMPH % 12 % (24-48); MEAN CORPUSCULAR HEMOGLOBIN 30 pg (25-35); MEAN CORPUSCULAR HGB CONC 32 g/dL (31-37); MEAN CORPUSCULAR VOLUME 92 fL (79-100); MONO % 9 % (0-9); NEUT # 9.4 x10^3uL (1.8-7.7); NEUT % 78 % (31-73); PLATELET COUNT 274 x10^3/uL (140-400); RED BLOOD COUNT 4.71 x10^6/uL (3.50-5.40); RED CELL DISTRIBUTION WIDTH 14.9 % (11.5-14.5); WHITE BLOOD COUNT 12.1 x10^3/uL (4.0-11.0)
[2020-07-14 12:29] LABS: ALBUMIN 3.3 g/dL (3.4-5.0); ALBUMIN/GLOBULIN RATIO 0.9 (1.0-1.7); GFR 52.3; POTASSIUM 4.2 mmol/L (3.5-5.1); TOTAL BILIRUBIN 0.4 mg/dL (0.2-1.0); TOTAL PROTEIN 6.9 g/dL (6.4-8.2)
[2020-07-14] MEDS: rOPINIRole 1 MG TABLET. PO SCH ×2 (12:41→20:09)
[2020-07-14 15:52] VITALS: BP 131/65
[2020-07-14] MEDS: MIRTAZAPINE 7.5 MG TABLET. PO SCH (20:09)
[2020-07-14] MEDS: traZODone 50 MG TABLET. PO PRN (20:10)
[2020-07-14] MEDS: MELATONIN 3 MG TABLET PO SCH (20:10)
[2020-07-14] MEDS: risperiDONE 0.5 MG TABLET. PO SCH (20:10)
[2020-07-14] MEDS: ATORVASTATIN CALCIUM 20 MG TABLET PO SCH (20:10)
[2020-07-14] MEDS: GABAPENTIN 300 MG CAPSULE. PO SCH (20:10)
--- NOTE | 2020-07-14 21:01 | PDOC ---
Exam Note: Eriberto Note: Please also refer to the separate dictated note~for this date of service dictated separately.~Patient seen individually. Discussed the patient with Nursing staff reviewed the chart.~Reviewed interim history and current functioning. Reviewed vital signs,~Labs/ Radiology~and current medications noted below. Continue current treatment with the changes noted in the dictated addendum note Assessment: Vital Signs/I&O: Vital Signs Date Time Temp Pulse Resp B/P (MAP) Pulse Ox O2 Delivery O2 Flow Rate FiO2 07/14/20 15:52 98.3 79 20 131/65 (87) 97 07/14/20 06:26 Room Air I & O 07/13/20 07/13/20 07/14/20 15:00 23:00 07:00 Intake Total 600 ml 240 ml Output Total 1 ml Balance 599 ml 240 ml Labs: Laboratory Tests Test 07/14/20 11:00 White Blood Count 12.1 x10^3/uL (4.0-11.0) H Red Blood Count 4.71 x10^6/uL (3.50-5.40) Hemoglobin 14.0 g/dL (12.0-15.5) Hematocrit 43.5 % (36.0-47.0) Mean Corpuscular Volume 92 fL (79-100) Mean Corpuscular Hemoglobin 30 pg (25-35) Mean Corpuscular Hemoglobin Concent 32 g/dL (31-37) Red Cell Distribution Width 14.9 % (11.5-14.5) H Platelet Count 274 x10^3/uL (140-400) Neutrophils (%) (Auto) 78 % (31-73) H Lymphocytes (%) (Auto) 12 % (24-48) L Monocytes (%) (Auto) 9 % (0-9) Eosinophils (%) (Auto) 1 % (0-3) Basophils (%) (Auto) 0 % (0-3) Neutrophils # (Auto) 9.4 x10^3uL (1.8-7.7) H Lymphocytes # (Auto) 1.5 x10^3/uL (1.0-4.8) Monocytes # (Auto) 1.0 x10^3/uL (0.0-1.1) Eosinophils # (Auto) 0.2 x10^3/uL (0.0-0.7) Basophils # (Auto) 0.0 x10^3/uL (0.0-0.2) Sodium Level 140 mmol/L (136-145) Potassium Level 4.2 mmol/L (3.5-5.1) Chloride Level 106 mmol/L (98-107) Carbon Dioxide Level 28 mmol/L (21-32) Anion Gap 6 (6-14) Blood Urea Nitrogen 17 mg/dL (7-20) Creatinine 1.0 mg/dL (0.6-1.0) Estimated GFR (Cockcroft-Gault) 52.3 BUN/Creatinine Ratio 17 (6-20) Glucose Level 112 mg/dL (70-99) H Calcium Level 9.0 mg/dL (8.5-10.1) Total Bilirubin 0.4 mg/dL (0.2-1.0) Aspartate Amino Transferase (AST) 28 U/L (15-37) Alanine Aminotransferase (ALT) 30 U/L (14-59) Alkaline Phosphatase 110 U/L (46-116) Total Protein 6.9 g/dL (6.4-8.2) Albumin 3.3 g/dL (3.4-5.0) L Albumin/Globulin Ratio 0.9 (1.0-1.7) L Current Medications: I have reviewed the current psychotropics carefully including drug interactions. Risk benefit ratio favors no change other than as noted in my dictated progress note. Diagnosis: Problems: (1) Mild cognitive impairment (2) Anxiety disorder, unspecified (3) Major depressive disorder, recurrent, severe with psychotic symptoms LAURA PEREZ MD Jul 14, 2020 21:01
[2020-07-15 05:58] VITALS: BP 124/78
[2020-07-15] MEDS: POTASSIUM CHLORIDE 20 MEQ TABLET.ER. PO SCH ×2 (08:31→20:44)
[2020-07-15] MEDS: amLODIPine BESYLATE 5 MG TABLET PO SCH (08:31)
[2020-07-15] MEDS: CLOPIDOGREL BISULFATE 75 MG TABLET PO SCH (08:31)
[2020-07-15] MEDS: VITAMIN E. 400 UNIT CAPSULE. PO SCH (08:32)
[2020-07-15] MEDS: LISINOPRIL 20 MG TABLET PO SCH (08:32)
[2020-07-15] MEDS: PANTOPRAZOLE 40 MG TABLET. PO SCH (08:32)
[2020-07-15] MEDS: METOPROLOL SUCC 24HR ER 50 MG TAB.ER.24H. PO SCH (08:32)
[2020-07-15] MEDS: MULTIVITAMIN with MINERAL TABLET. PO SCH (08:32)
[2020-07-15] MEDS: SERTRALINE 50 MG TABLET. PO SCH (08:34)
[2020-07-15] MEDS: HYDROcodone/APAP 10/325 1 TAB TABLET PO PRN ×2 (12:27→23:00)
[2020-07-15] MEDS: rOPINIRole 1 MG TABLET. PO SCH ×2 (12:27→20:44)
[2020-07-15 15:00] VITALS: BP 109/75
--- NOTE | 2020-07-15 20:37 | PDOC ---
Exam Note: Eriberto Note: Please also refer to the separate dictated note~for this date of service dictated separately.~Patient seen individually. Discussed the patient with Nursing staff reviewed the chart.~Reviewed interim history and current functioning. Reviewed vital signs,~Labs/ Radiology~and current medications noted below. Continue current treatment with the changes noted in the dictated addendum note Assessment: Vital Signs/I&O: Vital Signs Date Time Temp Pulse Resp B/P (MAP) Pulse Ox O2 Delivery O2 Flow Rate FiO2 07/15/20 15:00 98.0 86 18 109/75 (86) 95 Room Air I & O 07/14/20 07/14/20 07/15/20 15:00 23:00 07:00 Intake Total 720 ml 360 ml Balance 720 ml 360 ml Current Medications: Meds: Current Medications Medications (Trade) Dose Ordered Sig/Tamanna Route PRN Reason Start Time Stop Time Status Last Admin Dose Admin Sertraline HCl (Zoloft) 50 mg DAILY PO 07/15/20 09:00 07/15/20 08:34 I have reviewed the current psychotropics carefully including drug interactions. Risk benefit ratio favors no change other than as noted in my dictated progress note. Diagnosis: Problems: (1) Mild cognitive impairment (2) Anxiety disorder, unspecified (3) Major depressive disorder, recurrent, severe with psychotic symptoms LAURA PEREZ MD Jul 15, 2020 20:37
[2020-07-15] MEDS: traZODone 50 MG TABLET. PO PRN (20:44)
[2020-07-15] MEDS: MIRTAZAPINE 7.5 MG TABLET. PO SCH (20:44)
[2020-07-15] MEDS: MELATONIN 3 MG TABLET PO SCH (20:44)
[2020-07-15] MEDS: GABAPENTIN 300 MG CAPSULE. PO SCH (20:44)
[2020-07-15] MEDS: risperiDONE 0.5 MG TABLET. PO SCH (20:44)
[2020-07-15] MEDS: ATORVASTATIN CALCIUM 20 MG TABLET PO SCH (20:44)
[2020-07-16 05:53] VITALS: BP 142/77
--- NOTE | 2020-07-16 07:26 | PDOC ---
Exam Note: Eriberto Note: This note is a late entry for 07/14/2020 covers elements not covered in my initial note. Subjective: The patient was seen on telehealth rounds in the evening of 07/14/2020 with Chelsey BELLA. Discussed with nursing staff, reviewed the chart. She slept 5 hours previous night. The patient did well previous night but in the morning of 07/14 she was kicking a nursing aids stomach stating she wanted the aid to have a miscarriage. She later wanted to apologize to the aid. Review of Systems: She is hard of hearing. No CV, , pulmonary, eye system symptoms on review. Mental Status Exam: Oriented to herself and situation. Speech is coherent, can be rapid at times. Abstraction is fair. Computation is impaired. Language function is intact. Attention span is short. Mood and affect remains labile, somewhat paranoid, delusional. No active suicidal or homicidal ideation. Laboratory Data: Reviewed. 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 Restless leg syndrome. Plan: Increase Zoloft to 50 mg a day. Maintain Risperdal, melatonin, trazodone, Zyprexa Zydis p.r.n., Remeron, gabapentin for the restless legs along with ReQuip which was reduced in dosage. Assessment: Vital Signs/I&O: Vital Signs Date Time Temp Pulse Resp B/P (MAP) Pulse Ox O2 Delivery O2 Flow Rate FiO2 07/16/20 05:53 97.2 75 18 142/77 (98) 96 Room Air I & O 07/15/20 07/15/20 07/16/20 15:00 23:00 07:00 Intake Total 360 ml 460 ml Balance 360 ml 460 ml Current Medications: Meds: Current Medications Medications (Trade) Dose Ordered Sig/Tamanna Route PRN Reason Start Time Stop Time Status Last Admin Dose Admin Sertraline HCl (Zoloft) 50 mg DAILY PO 07/15/20 09:00 07/15/20 08:34 I have reviewed the current psychotropics carefully including drug interactions. Risk benefit ratio favors no change other than as noted in my dictated progress note. Diagnosis: Problems: (1) Mild cognitive impairment (2) Anxiety disorder, unspecified (3) Major depressive disorder, recurrent, severe with psychotic symptoms LAURA PEREZ MD Jul 16, 2020 07:26
--- NOTE | 2020-07-16 07:48 | PDOC ---
Exam Note: Eriberto Note: This note is a late entry for 07/15/2020 covers elements not covered in my initial note. Subjective: The patient was seen on telehealth rounds in the evening of 07/15/2020 with Chelsey BELLA. Discussed with nursing staff, reviewed the chart. She slept 6-3/4 hours previous night. Previous night the patient was d elusional. There is another patient in the unit who has been psychotic seeing a cat on the unit and the patient was taking on some of this misperceptions but has done quite well today, more pleasant. Review of Systems: She is hard of hearing. No CV, , pulmonary, eye system symptoms on review. Mental Status Exam: Oriented to herself. She is much more pleasant, had to talk loudly due to her being hard of hearing. Speech is coherent. Abstraction is fair. Computation is impaired. Language function is intact. Attention span is short. Mood and affect less labile. Laboratory Data: Reviewed. 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 Restless leg syndrome. Plan: Continue current psychotropics from initial note. Adjust as clinically indicated. Assessment: Vital Signs/I&O: Vital Signs Date Time Temp Pulse Resp B/P (MAP) Pulse Ox O2 Delivery O2 Flow Rate FiO2 07/16/20 05:53 97.2 75 18 142/77 (98) 96 Room Air I & O 07/15/20 07/15/20 07/16/20 15:00 23:00 07:00 Intake Total 360 ml 460 ml Balance 360 ml 460 ml Current Medications: Meds: Current Medications Medications (Trade) Dose Ordered Sig/Tamanna Route PRN Reason Start Time Stop Time Status Last Admin Dose Admin Sertraline HCl (Zoloft) 50 mg DAILY PO 07/15/20 09:00 07/15/20 08:34 I have reviewed the current psychotropics carefully including drug interactions. Risk benefit ratio favors no change other than as noted in my dictated progress note. Diagnosis: Problems: (1) Mild cognitive impairment (2) Anxiety disorder, unspecified (3) Major depressive disorder, recurrent, severe with psychotic symptoms LAURA PEREZ MD Jul 16, 2020 07:48
[2020-07-16] MEDS: POTASSIUM CHLORIDE 20 MEQ TABLET.ER. PO SCH ×2 (08:31→19:16)
[2020-07-16] MEDS: LISINOPRIL 20 MG TABLET PO SCH (08:32)
[2020-07-16] MEDS: CLOPIDOGREL BISULFATE 75 MG TABLET PO SCH (08:32)
[2020-07-16] MEDS: MULTIVITAMIN with MINERAL TABLET. PO SCH (08:32)
[2020-07-16] MEDS: VITAMIN E. 400 UNIT CAPSULE. PO SCH (08:32)
[2020-07-16] MEDS: METOPROLOL SUCC 24HR ER 50 MG TAB.ER.24H. PO SCH (08:32)
[2020-07-16] MEDS: amLODIPine BESYLATE 5 MG TABLET PO SCH (08:32)
[2020-07-16] MEDS: PANTOPRAZOLE 40 MG TABLET. PO SCH (08:32)
[2020-07-16] MEDS: SERTRALINE 50 MG TABLET. PO SCH (08:33)
[2020-07-16] MEDS: HYDROcodone/APAP 10/325 1 TAB TABLET PO PRN ×2 (08:36→19:17)
[2020-07-16] MEDS: rOPINIRole 1 MG TABLET. PO SCH ×2 (12:41→19:15)
[2020-07-16 15:07] VITALS: BP 109/72
[2020-07-16] MEDS: MIRTAZAPINE 7.5 MG TABLET. PO SCH (19:13)
[2020-07-16] MEDS: MELATONIN 3 MG TABLET PO SCH (19:13)
[2020-07-16] MEDS: GABAPENTIN 300 MG CAPSULE. PO SCH (19:13)
[2020-07-16] MEDS: ESTRADIOL 0.01% VAGINAL CREAM 42.5GM TUBE. VG SCH (19:14)
[2020-07-16] MEDS: ATORVASTATIN CALCIUM 20 MG TABLET PO SCH (19:14)
[2020-07-16] MEDS: risperiDONE 0.5 MG TABLET. PO SCH (19:14)
[2020-07-16] MEDS: traZODone 50 MG TABLET. PO PRN (19:17)
--- NOTE | 2020-07-16 21:14 | PDOC ---
Exam Note: Eriberto Note: Please also refer to the separate dictated note~for this date of service dictated separately.~Patient seen individually. Discussed the patient with Nursing staff reviewed the chart.~Reviewed interim history and current functioning. Reviewed vital signs,~Labs/ Radiology~and current medications noted below. Continue current treatment with the changes noted in the dictated addendum note Assessment: Vital Signs/I&O: Vital Signs Date Time Temp Pulse Resp B/P (MAP) Pulse Ox O2 Delivery O2 Flow Rate FiO2 07/16/20 20:37 96 07/16/20 15:07 97.0 93 16 109/72 (84) 07/16/20 05:53 Room Air I & O 0 07/15/20 07/15/20 07/16/20 15:00 23:00 07:00 Intake Total 480 ml 460 ml Balance 480 ml 460 ml Current Medications: I have reviewed the current psychotropics carefully including drug interactions. Risk benefit ratio favors no change other than as noted in my dictated progress note. Diagnosis: Problems: (1) Mild cognitive impairment (2) Anxiety disorder, unspecified (3) Major depressive disorder, recurrent, severe with psychotic symptoms LAURA PEREZ MD Jul 16, 2020 21:14
[2020-07-16] MEDS ORDERED: GABA-586 PO (21:33)
[2020-07-16] MEDS ORDERED: MIRT7.5T8 PO (21:34)
[2020-07-16] MEDS ORDERED: SERT50TA PO (21:35)
[2020-07-16] MEDS ORDERED: TRAZ-120 PO (21:42)
[2020-07-16] MEDS ORDERED: OLAN5TAB99 PO (21:48)
[2020-07-16] MEDS ORDERED: RISP0.5T24 PO (21:51)
[2020-07-16] MEDS ORDERED: POTA20TA4 PO (21:52)
[2020-07-17 05:49] VITALS: BP 124/66
--- NOTE | 2020-07-17 07:49 | PDOC ---
Exam Note: Eriberto Note: This note is a late entry for 07/16/2020 covers elements not covered in my initial note. Subjective: The patient was seen on telehealth rounds in the morning of 07/16/2020 with Cehlsey BELLA. Discussed with nursing staff, reviewed the chart. She slept 7-1/4 hours previous night. Overall the patient remains less psychotic, paranoid, and less labile in her mood. Review of Systems: She is hard of hearing. No CV, , pulmonary, eye system symptoms on review. Mental Status Exam: Oriented to herself. She was little more animated, pleasant, verbal and interactive. Speech is coherent. Abstraction is fair. Computation is impaired. Language function is intact. Attention span is short. Mood and affect less labile. Laboratory Data: Reviewed. 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 Restless leg syndrome. Plan: I was called by Loyda, social service staff earlier in the day. Patients son wanting her discharged fairly soon to the assisted living. The patient had some intermittent psychotic symptoms till very recently and we have reduced the ReQuip, added Neurontin for her restless legs in place of the ReQuip and the patient is doing better. I would like to observe her another day but if she is stable on 07/17, we will plan a discharge. Assessment: Vital Signs/I&O: Vital Signs Date Time Temp Pulse Resp B/P (MAP) Pulse Ox O2 Delivery O2 Flow Rate FiO2 07/17/20 05:49 97.8 71 18 124/66 (85) 96 07/16/20 05:53 Room Air I & O 07/16/20 07/16/20 07/17/20 15:00 23:00 07:00 Intake Total 705 ml 425 ml Balance 705 ml 425 ml Current Medications: I have reviewed the current psychotropics carefully including drug interactions. Risk benefit ratio favors no change other than as noted in my dictated progress note. Diagnosis: Problems: (1) Mild cognitive impairment (2) Anxiety disorder, unspecified (3) Major depressive disorder, recurrent, severe with psychotic symptoms LAURA PEREZ MD Jul 17, 2020 07:49
[2020-07-17] MEDS: VITAMIN E. 400 UNIT CAPSULE. PO SCH (10:00)
[2020-07-17] MEDS: SERTRALINE 50 MG TABLET. PO SCH (10:00)
[2020-07-17] MEDS: CLOPIDOGREL BISULFATE 75 MG TABLET PO SCH (10:00)
[2020-07-17] MEDS: POTASSIUM CHLORIDE 20 MEQ TABLET.ER. PO SCH (10:03)
[2020-07-17] MEDS: MULTIVITAMIN with MINERAL TABLET. PO SCH (10:03)
[2020-07-17] MEDS: amLODIPine BESYLATE 5 MG TABLET PO SCH (10:03)
[2020-07-17 10:04] VITALS: BP 124/66
[2020-07-17] MEDS: LISINOPRIL 20 MG TABLET PO SCH (10:04)
[2020-07-17] MEDS: PANTOPRAZOLE 40 MG TABLET. PO SCH (10:04)
[2020-07-17] MEDS: METOPROLOL SUCC 24HR ER 50 MG TAB.ER.24H. PO SCH (10:04)
[2020-07-17] MEDS: rOPINIRole 1 MG TABLET. PO SCH (12:52)
--- NOTE | 2020-07-17 20:53 | PDOC ---
Exam Note: Eriberto Note: Please also refer to the separate dictated note~for this date of service dictated separately.~Patient seen individually. Discussed the patient with Nursing staff reviewed the chart.~Reviewed interim history and current functioning. Reviewed vital signs,~Labs/ Radiology~and current medications noted below. Continue current treatment with the changes noted in the dictated addendum note Assessment: Vital Signs/I&O: Vital Signs Date Time Temp Pulse Resp B/P (MAP) Pulse Ox O2 Delivery O2 Flow Rate FiO2 07/17/20 10:04 71 124/66 07/17/20 05:49 97.8 18 96 07/16/20 05:53 Room Air I & O 07/16/20 07/16/20 07/17/20 15:00 23:00 07:00 Intake Total 705 ml 425 ml Balance 705 ml 425 ml Current Medications: I have reviewed the current psychotropics carefully including drug interactions. Risk benefit ratio favors no change other than as noted in my dictated progress note. Diagnosis: Problems: (1) Mild cognitive impairment (2) Anxiety disorder, unspecified (3) Major depressive disorder, recurrent, severe with psychotic symptoms LAURA PEREZ MD Jul 17, 2020 20:53
--- NOTE | 2020-07-19 07:48 | DS ---
DATE OF DISCHARGE: 07/17/2020 DISCHARGE SUMMAR AND PSYCHIATRIC PROGRESS NOTE This late entry date of service 07/17/2020 covers elements not covered in my initial note 07/17/2020. REASON FOR ADMISSION: Please refer to the admission history for details. Briefly, the patient is an 89-year-old female referred to us from [place], [place], on account of being increasingly agitated, anxious, depressed with poor appetite, marked insomnia. She has paranoid, thought others were talking about her. She was hearing voices from the TV telling her what to do. She was seeing a woman outside her window with chainsaws. She felt no one cared for her and wanted to kick her out. The patient was paranoid, unmanageable at the facility, dangerous, had failed outpatient psychiatric interventions resulting in this referral. SIGNIFICANT FINDINGS AND CLINICAL COURSE: Following admission, the patient was seen daily individually by myself from a psychiatric standpoint, medical followup with Dr. Hobson/Dr. Vicente. The patient's UA was negative despite a history of chronic UTIs. She was having marked symptoms of restless legs and Requip was gradually increased per Dr. Mcconnell/Dr. Hobson, but this only made her psychosis worse. This was therefore reduced and gabapentin started low dosages for her restless leg and she was started on Risperdal 0.5 mg p.o. at bedtime. She seemed to stabilize on a combination of Risperdal 0.5 mg at bedtime; Zoloft 50 mg a day; melatonin 4.5 mg at bedtime; trazodone 50 mg at bedtime p.r.n. insomnia, may repeat x 1; Zyprexa p.r.n.; Remeron 7.5 mg at bedtime; Requip 1 mg twice a day; gabapentin 300 mg at bedtime. REVIEW OF SYSTEMS: Prior to discharge, 07/17/2020, hard of hearing. No CV, , pulmonary, eye system symptoms on review. MENTAL STATUS EXAM: Oriented to herself and situation. Speech has some latency, coherent. Abstraction fair, computation impaired, language function intact, attention span short. Psychotic symptoms were much improved. No suicidal ideation. LABORATORY DATA: Reviewed. FINAL DIAGNOSES: Major depressive disorder with psychotic features; psychotic disorder, unspecified; mild cognitive impairment; anxiety disorder, unspecified; impulse control disorder, unspecified. Rest unchanged from admission. DISCHARGE MEDICATIONS: Please refer to the MRAD. Psychiatric and medical followup at the facility as arranged prior to discharge. Time for discharge day management greater than 30 minutes. LAURA PEREZ MD DR: RIK/red JOB#: [id number] / [id number]
== END 2020-07-17 13:00 | DRG 885 ==
LOC: GEROPSY 15:25
PROVIDERS: ADMIT Psychiatry & Neurology Psychiatry; ATTEND Psychiatry & Neurology Psychiatry
DX: F33.3 Major depressive disorder, recurrent, severe with psychotic symptoms (principal); I10 Essential (primary) hypertension; F41.9 Anxiety disorder, unspecified; K21.9 Gastro-esophageal reflux disease without esophagitis; G89.4 Chronic pain syndrome; F63.9 Impulse disorder, unspecified; E78.5 Hyperlipidemia, unspecified; Z66 Do not resuscitate; I69.30 Unspecified sequelae of cerebral infarction; G25.81 Restless legs syndrome; G31.84 Mild cognitive impairment of uncertain or unknown etiology; G47.00 Insomnia, unspecified; Z20.828 Contact with and (suspected) exposure to other viral communicable diseases; Z79.899 Other long term (current) drug therapy; Z87.440 Personal history of urinary (tract) infections
CPT/HCPCS: 36415; 80053; 81001; 85025; 87086; U0003